=== PATIENT | female | born 1985 | race Caucasian/White ===

== ENCOUNTER 2016-04-11 16:13 | Outpatient (CLI) | payer MEDICAID ==
[2016-04-11 16:56] LABS: APPEARANCE,URINE SLIGHTLY-CLOUDY; BILIRUBIN,URINE NEGATIVE (NEGATIVE); GLUCOSE, URINE NEGATIVE (NEGATIVE); KETONES,URINE NEGATIVE (NEGATIVE); LEUKOCYTE ESTERASE,URINE NEGATIVE (NEGATIVE); NITRITE,URINE NEGATIVE (NEGATIVE); PROTEIN,URINE NEGATIVE (NEGATIVE); URINE SPECIFIC GRAVITY 1.012; UROBILINOGEN,URINE NEGATIVE mg/dL (<2.0)
[2016-04-11 17:10] LABS: URINE BARBITURATES SCREEN NEGATIVE; URINE METHADONE SCREEN NEGATIVE; URINE PHENCYCLIDINE SCREEN NEGATIVE
[2016-04-11 17:20] LABS: ABSOLUTE EOSINOPHILS # (AUTO) 0.1 10^3/uL (0.0-0.6); ABSOLUTE LYMPHOCYTES (AUTO) 0.8 10^3/uL (0.5-4.7); ABSOLUTE MONOCYTES (AUTO) 0.8 10^3/uL (0.1-1.4); ABSOLUTE NEUT (AUTO) 8.1 10^3/uL (1.7-8.2); BASOPHILS % (AUTO) 0.2 % (0-2); EOSINOPHILS % (AUTO) 0.6 % (0-6); HEMATOCRIT 37.8 % (36.0-47.0); HEMOGLOBIN 12.2 g/dL (12.0-15.5); HGB HCT DIFFERENCE -1.2; LYMPHOCYTES % (AUTO) 8.1 % (13-45); MEAN CORPUSCULAR HEMOGLOBIN 30.4 pg (27.0-33.4); MEAN CORPUSCULAR HGB CONC 32.2 g/dL (32.0-36.0); MEAN CORPUSCULAR VOLUME 95 fl (80-97); MONOCYTES % (AUTO) 8.6 % (3-13); RED BLOOD COUNT 4.01 10^6/uL (3.72-5.28); RED CELL DISTRIBUTION WIDTH 13.4 % (11.5-14.0); SEGMENTED NEUTROPHILS % (AUTO) 82.5 % (42-78); WHITE BLOOD COUNT 9.8 10^3/uL (4.0-10.5)
--- NOTE | 2016-04-12 04:48 | L&D Flow Sheet ---
LD Flowsheet Datetime Report Generated by CPN: 04/12/2016 04:45 Datetime: 04/11/2016 19:28 Teaching Comments: labor care notes provided and explained. all pt and signifcant other questions answered (Kathleen Celio, RN) Datetime: 04/11/2016 19:26 Comments: FHR 155; +FM auscultated and felt per pt (Kathleen Celio, RN) Comments: FHT 155 (Klaus Freddy, RN) Datetime: 04/11/2016 19:17 Respirations: 20 (Klaus Hayes, RN) Comments: +FM (Klaus Hayes RN) Pain Scale: 1 (Klaus Hayes, RN) Pain Presence: Intermittent (Klaus Hayes, RN) Pain Type: Cramping (Klaus Hayes, RN) Pain Location: Abdomen (Klaus Hayes, RN) Pain Relief Measures: Comfort Measures (Klaus Hayes, RN) Pain Coping: Talking Through Contractions; Declines Medication or Epidural (Klaus Hayes, RN) Level of Consciousness: Fully Conscious (Klaus Mckenzieeet, RN) Headache: Denies (Klaus Mckenzieeet, RN) Breath Sounds, Left: Clear and Equal (Klaus Mckenzieeet, RN) Breath Sounds, Right: Clear and Equal (Klaus Freddy, RN) Nausea/Vomiting: Denies (Klaus Mckenzieeet, RN) RUQ Epigastric Pain: Denies (Klaus Freddy, RN) Datetime: 04/11/2016 19:15 NBP Sys/Jessica/Mean (mmHg): 126 (QS system process) : 70 (QS system process) : 92 (QS system process) Pulse: 108 (QS system process) Datetime: 04/11/2016 19:12 Communication Comments: Dr Guzman notified of temperature, US report of 3.4cm cervical length and closed; Orders to discharge patient home, pt may take OTC cold medicine for cough and tylenol for elevated temperature. (Klaus Hayes RN) Datetime: 04/11/2016 19:11 Temperature (F): 100.0 (Klaus Hayes RN) Temperature (C): 37.8 (QS system process) Communication Comments: Dr Guzman assess pt (Klaus Hayes RN) Datetime: 04/11/2016 18:45 NBP Sys/Jessica/Mean (mmHg): 126 (QS system process) : 72 (QS system process) : 93 (QS system process) Pulse: 104 (QS system process) Datetime: 04/11/2016 17:44 Monitor Mode: External; Palpation (Kalus Hayes RN) Frequency (min): none (Klaus Hayes RN) Resting Tone (Palpate): Relaxed (Klaus Hayes RN) Comments: [id number] +FM; Pt removed from monitors to await transport to US. (Klaus Hayes RN) Communication: RN at Bedside; RN Reviewed Strip (Klaus Hayes RN) Datetime: 04/11/2016 17:33 NBP Sys/Jessica/Mean (mmHg): 122 (QS system process) : 70 (QS system process) : 90 (QS system process) Pulse: 97 (QS system process) Datetime: 04/11/2016 17:30 Monitor Mode: External; Palpation (Klaus Hayes RN) Frequency (min): none (Klaus Hayes RN) Resting Tone (Palpate): Relaxed (Klaus Hayes RN) Contraction Comments: pt c/o cramping (Klaus Hayes RN) Pain Scale: 1 (Klaus Hayes RN) Pain Presence: Intermittent (Klaus Hayes RN) Pain Type: Cramping (Klaus Hayes RN) Pain Location: Abdomen (Klaus Hayes RN) Pain Relief Measures: Comfort Measures (Klaus Hayes RN) Pain Coping: Talking Through Contractions; Declines Medication or Epidural (Klaus Hayes RN) Comfort Measures: Breathing/Relaxation; Family Support (Klaus Hayes RN) Datetime: 04/11/2016 17:28 Communication Comments: Dr Guzman reviewed labwork, vs, efm. Notified pt states cramping is unchanged, 1/5 pain now. Orders for US for cervical length (Klaus Hayes RN) Datetime: 04/11/2016 17:03 NBP Sys/Jessica/Mean (mmHg): 118 (QS system process) : 73 (QS system process) : 91 (QS system process) Pulse: 105 (QS system process) Datetime: 04/11/2016 17:00 Monitor Mode: External; Palpation (Klaus Hayes RN) Frequency (min): none (Klaus Hayes RN) Resting Tone (Palpate): Relaxed (Klaus Hayes RN) Contraction Comments: Pt denies cramping/contractions (Klaus Hayes RN) Comments: +FM (Klaus Hayes RN) Pain Presence: None/Denies (Klaus Hayes RN) IV/Blood Work: Labs Drawn (Klaus Hayes RN) Communication: RN at Bedside; RN Reviewed Strip (Klaus Hayes RN)
--- NOTE | 2016-04-12 04:48 | L&D Current Admission ---
Current Admit Datetime Report Generated by CPN: 04/12/2016 04:45 ADMISSION INFORMATION Chief Complaint: Uterine Cramping (Annotations: Pt states cramping is decreased now, has taken tylenol earlier, and pain was relieved. ) (04/11/2016 16:30:Klaus Hayes RN)
--- NOTE | 2016-04-12 04:48 | L&D General Admission ---
General Admit Datetime Report Generated by CPN: 04/12/2016 04:45 INFORMATION Patient Age: 30 (04/11/2016 16:14:QS system process) EDC: 08/20/2016 00:00 (04/11/2016 16:15:Tabatha Araujo RN) : 3 (04/11/2016 16:15:Klaus Hayes RN) Para: 0 (04/11/2016 16:15:Klaus Hayes RN) Spontaneous Abortions: 1 (04/11/2016 16:15:Klaus Hayes RN) Induced Abortions: 1 (04/11/2016 16:15:Klaus Hayes RN) [place] (04/11/2016 16:15:Klaus Hayes RN) CARE Primary Sharepoint Application Developer: [facility] (04/11/2016 16:15:Klaus Hayes RN) Sharepoint Application Developer Other: [facility] (04/11/2016 16:15:Klaus Hayes RN) Height (in): 66 (04/11/2016 16:28:QS system process) ALLERGIES Medication Allergy: No (04/11/2016 16:15:Klaus Hayes RN) Medication Allergies: No Known Allergies (04/11/2016) (04/11/2016 16:27:QS system process) Medication Allergies: No Known Allergies (07/07/2015) (04/11/2016 16:14:QS system process) Latex Allergy: No Latex Allergies (04/11/2016 16:15:Klaus Hayes RN) COMMUNICATION Primary Language: Polish (04/11/2016 16:15:Klaus Hayes RN) Medical Tx Preferred Language: Polish (04/11/2016 16:15:Klaus Hayes RN) Communication Barrier(s): None (04/11/2016 16:15:Klaus Hayes RN) DEMOGRAPHICS Address: [address] [place] [address] [place] [address] (04/11/2016 16:14:QS system process) Zipcode: [phone] (04/11/2016 16:14:QS system process) Home (04/11/2016 16:14:QS system process) SSN: [id number] (04/11/2016 16:14:QS system process) Next of Kin Name: SAMMY LINDO (04/11/2016 16:14:QS system process) Next of Kin (04/11/2016 16:14:QS system process) Next of Kin Relationship: SPO (04/11/2016 16:14:QS system process) Date of : 1985 (04/11/2016 16:14:QS system process) Marital Status: (04/11/2016 16:14:QS system process) Sex: Female (04/11/2016 16:14:QS system process) Race: (04/11/2016 16:14:QS system process) Ethnicity: Non- or (04/11/2016 16:14:QS system process) Zoroastrianism: None (04/11/2016 16:14:QS system process) DRUG AND ALCOHOL USE Alcohol: No (04/11/2016 16:15:Klaus Hayes, CHECO) Cigarettes: Never Smoker. [id number] (04/11/2016 16:15:Klaus Hayes RN) Marijuana: No (04/11/2016 16:15:Klaus Hayes RN) Cocaine: No (04/11/2016 16:15:Klaus Hayes RN) Other Illicit Drugs: No (04/11/2016 16:15:Klaus Hayes RN) VACCINE HISTORY Influenza Vaccine: No (04/11/2016 16:15:Klaus Hayes RN) Pneumococcal Vaccine: No (04/11/2016 16:15:Klaus Hayes RN) Tetanus Vaccine: Yes (04/11/2016 16:15:Klaus Hayes RN) Tdap Vaccine: No (04/11/2016 16:15:Klaus Hayes RN) Hepatitis B Vaccine: Yes (04/11/2016 16:15:Klaus Hayes RN) Circumcision: No (04/11/2016 16:15:Klaus Hayes RN) Tubal Ligation: No (04/11/2016 16:15:Klaus Hayes RN) Tubal Authorization Signed: N/A (04/11/2016 16:15:Klaus Hayes RN) Consent: N/A (04/11/2016 16:15:Klaus Hayes RN) Consent Signed: N/A (04/11/2016 16:15:Klaus Hayes RN) Pain Management Plans: Natural (04/11/2016 16:15:Klaus Hayes RN) Support Person: Sammy Lindo (04/11/2016 16:15:Klaus Hayes RN) Support Person Relationship: (04/11/2016 16:15:Klaus Hayes RN) Cultural/Spritual Practice: No (04/11/2016 16:15:Klaus Hayes RN) Spir/Cult Dietary Needs: No (04/11/2016 16:15:Klaus Hayes RN) LIVING SITUATION/DISCHARGE PLAN Living Arrangements: House (04/11/2016 16:15:Klaus Hayes RN) Adequate Access to:: Electric; Heat; Refrigeration; Plumbing/Running water; Phone; Transportation (04/11/2016 16:15:Klaus Hayes RN) WIC Program: Yes (04/11/2016 16:15:Klaus Hayes RN) Discharge Title Department Manager Person: Sammy Lindo (04/11/2016 16:15:Klaus Hayes RN) Person to Help after Discharge: Sammy Lindo (04/11/2016 16:15:Klaus Hayes RN) Currently Using Commun Resources: Yes (04/11/2016 16:15:Klaus Hayes RN) Specify Current Resource Used: Medicaid (04/11/2016 16:15:Klaus Hayes RN) Outside Agency/Battery Loader: No (04/11/2016 16:15:Klaus Hayes RN) Car Seat for Discharge: Yes (04/11/2016 16:15:Klaus Hayes RN) Adoption Requested: No (04/11/2016 16:15:Klasu Hayes RN) Pt Contact w/infant Post : N/A (04/11/2016 16:15:Klaus Hayes RN) LABS Blood Type: A Positive (04/11/2016 16:15:Klaus Hayes RN) Antibody Screen: Negative (04/11/2016 16:15:Klaus Hayes RN) Hemoglobin: 12.2 (04/11/2016 17:04:QS system process) Hematocrit: 37.8 (04/11/2016 17:04:QS system process) MCV: 95 (04/11/2016 17:04:QS system process) RPR/VDRL: Nonreactive (04/11/2016 16:15:Klaus Hayes RN) HIV Exposure Test: Negative (04/11/2016 16:15:Klaus Hayes RN) Hepatitis B: Negative (04/11/2016 16:15:Klaus Hayes RN) Rubella: Negative (04/11/2016 16:15:Klaus Hayes RN) Varicella: Positive (04/11/2016 16:15:Klaus Hayes RN) Varicella Titer: 1571 (04/11/2016 16:15:Klaus Hayes RN)
--- NOTE | 2016-04-12 04:48 | L&D Admission Assessment ---
LD ADM ASMT Datetime Report Generated by CPN: 04/12/2016 04:45 PATIENT ASSESSMENT Assessment Type: Admission Assessment (04/11/2016 16:30:Klaus Freddy, RN) WEIGHT Weight (lb): 211 (04/11/2016 16:28:QS system process) Weight (kg): 95.9 (04/11/2016 16:28:QS system process) PAIN Pain Scale: 1 (04/11/2016 19:17:Klaus Freddy, RN) Pain Scale: 1 (04/11/2016 17:30:Klaus Freddy, RN) Pain Scale: 0 (04/11/2016 16:30:Klaus Freddy, RN) Pain Presence: Intermittent (04/11/2016 19:17:Klaus Freddy, RN) Pain Presence: Intermittent (04/11/2016 17:30:Klaus Freddy, RN) Pain Presence: None/Denies (04/11/2016 17:00:Klaus Freddy, RN) Pain Presence: None/Denies (04/11/2016 16:30:Klaus Freddy, RN) Pain Type: Cramping (04/11/2016 19:17:Klaus Freddy, RN) Pain Type: Cramping (04/11/2016 17:30:Klaus Freddy, RN) Pain Location: Abdomen (04/11/2016 19:17:Klaus Freddy, RN) Pain Location: Abdomen (04/11/2016 17:30:Klaus Freddy, RN) CONTRACTIONS Frequency (min): none (04/11/2016 17:44:Klaus Mezat, RN) Frequency (min): none (04/11/2016 17:30:Klaus Mezat, RN) Frequency (min): none (04/11/2016 17:00:Klaus Mezat, RN) Resting Tone [place]: Relaxed (04/11/2016 17:44:Klaus Hayes, RN) Resting Tone [place]: Relaxed (04/11/2016 17:30:Klaus Mezat, RN) Resting Tone [place]: Relaxed (04/11/2016 17:00:Klaus Mezat, RN) Contraction Comments: pt c/o cramping (04/11/2016 17:30:Klaus Hayes RN) Contraction Comments: Pt denies cramping/contractions (04/11/2016 17:00:Klaus Hayes, RN) NEURO Level of Consciousness: Fully Conscious (04/11/2016 19:17:Klaus Hayes RN) Level of Consciousness: Fully Conscious (04/11/2016 16:30:Klaus Hayes RN) DTR's/Clonus: DTRs 2+; No Clonus (04/11/2016 16:30:Klaus Hayes RN) Headache: Denies (04/11/2016 19:17:Klaus Hayes RN) Headache: Denies (04/11/2016 16:30:Klaus Hayes RN) Dizziness: No (04/11/2016 16:30:Klaus Hayes RN) Blurred Vision: No (04/11/2016 16:30:Klaus Hayes RN) Extremity Numbness/Tingling : None (04/11/2016 16:30:Klaus Hayes RN) Extremity Movement: Full Range of Motion (04/11/2016 16:30:Klaus Hayes RN) CARDIOVASCULAR Heart Rhythm: Regular (04/11/2016 16:30:Klaus Hayes RN) Nailbeds: [place] (04/11/2016 16:30:Klaus Hayes RN) Capillary Refill: Less than 3 Seconds (04/11/2016 16:30:Klaus Hayes RN) Lower Extremities Edema: None (04/11/2016 16:30:Klaus Hayes RN) Lower Extremities Edema Degree: None (04/11/2016 16:30:Klaus Hayes RN) Upper Extremities Edema: None (04/11/2016 16:30:Klaus Hayes RN) Upper Extremities Edema Degree: None (04/11/2016 16:30:Klaus Hayes RN) Facial Edema: None (04/11/2016 16:30:Klaus Hayes RN) Kasandra's Sign Left Leg: Negative (04/11/2016 16:30:Klaus Hayes RN) Kasandra's Sign Right Leg: Negative (04/11/2016 16:30:Klaus Hayes RN) DVT RISK ASSESSMENT DVT Risk Age: Age less than 41 years (04/11/2016 16:30:Klaus Hayes RN) DVT Risk BMI: BMI 31 to 40 (04/11/2016 16:30:Klaus Hayes RN) DVT Risk Surgery: None Applicable (04/11/2016 16:30:Klaus Hayes RN) DVT Risk Other: Women Only- or (<1 month) (04/11/2016 16:30:Klaus Hayes RN) DVT Risk Total: 2 (04/11/2016 16:30:QS system process) DVT Risk Text: Moderate Risk (10-20%) - Consider stockings, compresssion device, pharmacological therapy per hospital policy (04/11/2016 16:30:QS system process) RESPIRATORY Respiratory Effort: Unlabored; Regular Rhythm; Equal Expansion (04/11/2016 16:30:Klaus Hayes RN) Breath Sounds, Left: Clear and Equal (04/11/2016 19:17:Klaus Hayes RN) Breath Sounds, Left: Clear and Equal (04/11/2016 16:30:Klaus Hayes RN) Breath Sounds, Right: Clear and Equal (04/11/2016 19:17:Klaus Freddy, RN) Breath Sounds, Right: Clear and Equal (04/11/2016 16:30:Klaus Freddy, RN) Cough Productivity: None (04/11/2016 16:30:Klaus Freddy, RN) GASTROINTESTINAL Nausea/Vomiting: Denies (04/11/2016 19:17:Klaus Freddy, RN) Nausea/Vomiting: Denies (04/11/2016 16:30:Klaus Freddy, RN) Bowel Sounds: Normoactive (04/11/2016 16:30:Klaus Freddy, RN) RUQ Epigastric Pain: Denies (04/11/2016 19:17:Klaus Freddy, RN) RUQ Epigastric Pain: Denies (04/11/2016 16:30:Klaus Freddy, RN) Bowel Patterns: Soft, Formed Stool (04/11/2016 16:30:Klaus Freddy, RN) Hemorrhoids: None (04/11/2016 16:30:Klaus Freddy, RN) Diet Type: Regular diet (04/11/2016 16:30:Klaus Freddy, RN) GENITOURINARY Bladder: Nondistended (04/11/2016 16:30:Klaus Freddy, RN) Frequency of Urination: No (04/11/2016 16:30:Klaus Freddy, RN) Urination Burning: No (04/11/2016 16:30:Klaus Freddy, RN) CVA Tenderness: No (04/11/2016 16:30:Klaus Freddy, RN) Vaginal Bleeding: None (04/11/2016 16:30:Klaus Freddy, RN) Vaginal Discharge Amount: None (04/11/2016 16:30:Klaus Freddy, RN) Vaginal Discharge Color: N/A (04/11/2016 16:30:Klaus Freddy, RN) Vaginal Discharge Odor: Non-Odorous (04/11/2016 16:30:Klaus Freddy, RN) Vaginal Discharge Character: None (04/11/2016 16:30:Klaus Freddy, RN) INTEGUMENTARY Skin Color: Normal for Race (04/11/2016 16:30:Klaus Freddy, RN) Skin Temperature: Warm (04/11/2016 16:30:Klaus Freddy, RN) Skin Moisture: Dry (04/11/2016 16:30:Klaus Freddy, RN) [place] SKIN ASSESSMENT [place] Scale Sensory Perception: No Impairment- Responds to verbal commands. Has no sensory deficit which would limit ability to feel or voice pain or discomfort (04/11/2016 16:30:Klaus Hayes RN) [place] Scale Moisture: Rarely Moist- Skin is usually dry. Linen only requires changing at routine intervals (04/11/2016 16:30:Klaus Hayes RN) [place] Scale Activity: Walks Frequently- Walks outside the room at least twice a day and inside room at least every 2 hours during the day. (04/11/2016 16:30:Klaus Hayes RN) [place] Scale Mobility: No Limitations- Makes major and frequent changes in position without assistance (04/11/2016 16:30:Klaus Hayes RN) [place] Scale Nutrition: Excellent- Eats most of every meal. Never refuses a meal. Usually eats a total of 4 or more servings of meat and dairy products. Occasionally eats between meals. Does not require supplementation (04/11/2016 16:30:Klaus Hayes RN) [place] Scale Friction and Shear: No Apparent Problem- Moves in bed and in chair independently and has sufficient muscle strength to lift up completely during move. Maintains good position in bed or chair at all times (04/11/2016 16:30:Klaus Hayes RN) [place] Scale Total: 23 (04/11/2016 16:30:QS system process) [place] Scale Risk: No Risk of Pressure Ulcer Noted at this Time (04/11/2016 16:30:QS system process) SUPPORT Family Support: Significant Other supportive, at bedside frequently (04/11/2016 16:30:Klaus Freddy, RN) Emotional State: Calm/Relaxed (04/11/2016 16:30:Klaus Freddy, RN) SAFETY Call [place] Within Reach: Yes (04/11/2016 16:30:Klaus Freddy, RN) Side Rails Up: Yes (04/11/2016 16:30:Klaus Freddy, RN) Bed Wheels Locked: Yes (04/11/2016 16:30:Klaus Freddy, RN) Arm Bands Present: Yes (04/11/2016 16:30:Klaus Freddy, RN) Isolation: [place] (04/11/2016 16:30:Klaus Freddy, RN) FALL SCREEN Fall Risk History of Falling: (0) No (04/11/2016 16:30:Klaus Hayes RN) Fall Risk Secondary Diagnosis: (0) No (04/11/2016 16:30:Klaus Hayes RN) Fall Risk Ambulatory Aid: (0) None/Bedrest/Wheelchair/Nurse Assist (04/11/2016 16:30:Klaus Hayes RN) Fall Risk IV Therapy: (0) No (04/11/2016 16:30:Klaus Hayes RN) Fall Risk Gait: (0) Normal/Bedrest/Immobile (04/11/2016 16:30:Klaus Hayes RN) Fall Risk Mental Status: (0) Oriented to Own Ability (04/11/2016 16:30:Klaus Hayes RN) Fall Risk Score: 0 (04/11/2016 16:30:QS system process) Fall Risk Score Definition: No Risk: No action required (04/11/2016 16:30:QS system process) RECENT TRAVEL/INFECTIOUS DISEASE Recent Exp Communicable Disease: No (04/11/2016 16:30:Klaus Hayes RN) Cough or Fever: Yes (04/11/2016 16:30:Klaus Hayes RN) Foreign Travel Past 10 Days: No (04/11/2016 16:30:Klaus Hayes RN) Open Wounds or Sores: No (04/11/2016 16:30:Klaus Hayes RN) Prior Antibiotic Resistance Tx: No (04/11/2016 16:30:Klaus Hayes RN) Cultures Obtained: Not Applicable (04/11/2016 16:30:Klaus Hayes RN) Isolation Initiated: No (04/11/2016 16:30:Klaus Hayes RN) Pt/Family Education: Handwashing Hygiene (04/11/2016 16:30:Klaus Hayes RN) ADDITIONAL COMMENTS Assessment Flag: Admission Assessment (04/11/2016 16:30:QS system process)
--- NOTE | 2016-04-12 04:49 | L&D Discharge Summary ---
OB Discharge Summary Datetime Report Generated by CPN: 04/12/2016 04:45 DISCHARGE DIAGNOSIS Diagnosis/Symptoms: False Labor Gestation: 21.2 Parity: 0 DIET/ACTIVITY/RESTRICTIONS Diet: Regular Activity Restrictions: No Sexual Activity; Nothing in Vagina - [place], Tampons, [place] TEACHING/INSTRUCTIONS/REFERRALS Instructions Given To: PT Instructions Understood: Patient Verbalized Understanding; Support Person Verbalized Understanding Referrals: None Educational Materials- Other: Labor DISCHARGE INFORMATION Discharged AMA: No Discharge Date/Time: 04/11/2016 19:22 Discharged To: Home Discharge Provider Name: YEE Accompanied By: Discharge Method: Ambulatory Condition: Stable FOLLOW UP INFORMATION Follow Up With: [facility] Follow Up On: As Scheduled Follow Up Phone Number: [facility] - Comments: Pt discharged ambulatory in no distress, agrees with discharge plan, states she will take tylenol at home for elevated temperature. 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 Pt verbalizes understanding of s/s to report, when to return to hospital for evaluation, to keep scheduled appointments. No complaints. GENERAL INSTR-CALL PROVIDER IF: Contractions: Contractions or cramps become more frequent than 8 in one hour or 4 in 20 minutes; Regular painful contractions every 5 minutes or less for one hour. Time your contractions from the beginning of one to the beginning of the next Pressure: Pressure in your vagina or lower abdomen that may feel like the baby is pushing down Period Like Cramps: Period-like cramps or low dull backache that may come and go Cramps/Diarrhea: Abdominal cramps that may be accompanied by diarrhea Gush of Fluid/Blood: Gush of fluid or blood from your vagina (it is normal to have spotting after vaginal exam or intercourse) Vaginal Discharge: Change in the type or amount of vaginal discharge Decreased Movement: Your baby is not moving as much as usual- 4 movements in 1 hour after drinking and resting on side Temperature: Temperature greater than 100.0(F) orally
--- NOTE | 2016-04-12 04:49 | Antepartum Discharge Summary ---
Antepartum DC Datetime Report Generated by CPN: 04/12/2016 04:45 DIET/ACTIVITY/RESTRICTIONS Diet: Regular (04/11/2016 19:21:Klaus Freddy, RN) Activity Restrictions: No Sexual Activity; Nothing in Vagina - [place], Tampons, Douche (04/11/2016 19:21:Klaus Freddy, RN) TEACHING/INSTRUCTIONS/REFERRALS Instructions Given To: PT (04/11/2016 19:21:Klaus Freddy, RN) Instructions Understood: Patient Verbalized Understanding; Support Person Verbalized Understanding (04/11/2016 19:21:Klaus Hayes RN) Referrals: None (04/11/2016 19:21:Klaus Hayes RN) Educational Materials- Other: Labor (04/11/2016 19:21:Klaus Hayes RN) DISCHARGE INFORMATION Discharged AMA: No (04/11/2016 19:21:Klaus Hayes RN) Discharge Date/Time: 04/11/2016 19:22 (04/11/2016 19:21:Klaus Hayes RN) Discharged To: Home (04/11/2016 19:21:Klaus Hayes RN) Discharge Provider Name: YEE (04/11/2016 19:21:Klaus Hayes RN) Accompanied By: (04/11/2016 19:21:Klaus Hayes RN) Discharge Method: Ambulatory (04/11/2016 19:21:Klaus Hayes RN) Condition: Stable (04/11/2016 19:21:Klaus Hayes RN) FOLLOW UP INFORMATION Follow Up With: [facility] (04/11/2016 19:21:Klaus Hayes RN) Follow Up On: As Scheduled (04/11/2016 19:21:Klaus Hayes RN) Follow Up Phone Number: [facility] - (04/11/2016 19:21:Klaus Hayes RN) Comments: Pt discharged ambulatory in no distress, agrees with discharge plan, states she will take tylenol at home for elevated temperature. dispensing and measuring optician agrees with discharge. Pt verbalizes understanding of s/s to report, when to return to hospital for evaluation, to keep scheduled appointments. No complaints. (04/11/2016 19:21:Klaus Hayes RN) GENERAL INSTR-CALL PROVIDER IF: Contractions: Contractions or cramps become more frequent than 8 in one hour or 4 in 20 minutes; Regular painful contractions every 5 minutes or less for one hour. Time your contractions from the beginning of one to the beginning of the next (04/11/2016 19:21:Klaus Hayes RN) Pressure: Pressure in your vagina or lower abdomen that may feel like the baby is pushing down (04/11/2016 19:21:Klaus Hayes RN) Period Like Cramps: Period-like cramps or low dull backache that may come and go (04/11/2016 19:21:Klaus Hayes RN) Cramps/Diarrhea: Abdominal cramps that may be accompanied by diarrhea (04/11/2016 19:21:Klaus Hayes RN) Gush of Fluid/Blood: Gush of fluid or blood from your vagina (it is normal to have spotting after vaginal exam or intercourse) (04/11/2016 19:21:Klaus Hayes RN) Vaginal Discharge: Change in the type or amount of vaginal discharge (04/11/2016 19:21:Klaus Hayes RN) Decreased Movement: Your baby is not moving as much as usual- 4 movements in 1 hour after drinking and resting on side (04/11/2016 19:21:Klaus Hayes RN) Temperature: Temperature greater than 100.0(F) orally (04/11/2016 19:21:Klaus Hayes RN) Hypertension Signs/Symptoms: Severe headache which is not relieved 30 minutes after taking Tylenol(Acetaminophen); Blurry vision or spots before your eyes; Severe heartburn or pain on the upper right side of your abdomen that is not relieved by an antacid; Increased swelling in your face, hands or feet (04/11/2016 19:21:Klaus Hayes RN) Urinary Output: Decreased urinary output or dark colored urine (04/11/2016 19:21:Klaus Hayes RN) ADDITIONAL INSTRUCTIONS N/V [place]/Crackers: Keep dry toast/crackers with you to munc on (04/11/2016 19:21:Klaus Hayes RN) N/V Frequent Meals: Eat small frequent meals (04/11/2016 19:21:Klaus Hayes RN) N/V Empty Stomach: Try to keep something in your stomach (don't let your stomach get empty) (04/11/2016 19:21:Klaus Hayes RN) N/V Time Getting Up: Take your time getting up (04/11/2016 19:21:Klaus Hayes RN) N/V Avoid Smells: Avoid smells that make you feel sick (04/11/2016 19:21:Klaus Hayes RN) Travel Seatbelts: Wear seatbelts or safety/lap belts (04/11/2016 19:21:Klaus Hayes RN) Travel Walk Frequently: Walk frequently, every 1-2 hours (04/11/2016 19:21:Klaus Hayes RN) Travel Comfort Clothes: Wear clothing that does not constrict and comfortable shoes (04/11/2016 19:21:Klaus Hayes RN) Travel Light Snack: Keep a light snack (e.g. dry crackers) with you at all times to prevent nausea (04/11/2016 19:21:Klaus Hayes RN) Travel Hydration: Drink plenty of water, low sodium and noncaffeinated drinks (04/11/2016 19:21:Klaus Hayes RN) Travel Medications: DO NOT take any medication that is not approved by your physician first (04/11/2016 19:21:Klasu Hayes RN) Travel PN Records: Always keep a copy of your medical record with you just in case (04/11/2016 19:21:Klaus Hayes RN) Edema Avoid Standing: Avoid standing for long periods, keep legs up when you can (04/11/2016 19:21:Klaus Hayes RN) Edema Rest on Side: When resting, lie on your side (left is best) (04/11/2016 19:21:Klaus Hayes RN) Edema Limit Sodium: Limit the amount of salty foods you eat (04/11/2016 19:21:Klaus Hayes RN) Edema Support Hose: Try to wear support hose as much as possible (04/11/2016 19:21:Klaus Hayes RN) Exercise Overheating: Avoid situations that would cause you to become overheated (04/11/2016 19:21:Klaus Hayes RN) Exercise Weather: Exercise outdoors only if the weather is reasonable and not too hot (04/11/2016 19:21:Klaus Hayes RN) Exercise Exertion: Do not over exert yourself when you exercise (04/11/2016 19:21:Klaus Hayes RN) Exercise Hydration: Drink plenty of fluids, especially water (04/11/2016 19:21:Klaus Hayes RN) Exercise Support: Wear good support hose, bra and shoes when exercising (04/11/2016 19:21:Klaus Hayes RN) Varicose Veins Instructions: Do not stand for long periods of time (04/11/2016 19:21:Klaus Hayes RN) Varicose Veins Elevate Sit: Try to keep your legs elevated when you are sitting (04/11/2016 19:21:Klaus Hayes RN) Varicose Veins Elevate Lying: When lying down, keep your legs elevated (04/11/2016 19:21:Klaus Hayes RN) Varicise Veins Non Binding: When wearing stockings or socks, make sure they are not too tight and bind your legs (04/11/2016 19:21:Klaus Hayes RN) Varicose Veins Support: Wear support hose/stockings at all times (04/11/2016 19:21:Klaus Hayes RN) Varicose Veins Periodic Move: If you have a job where you sit a lot, get up periodically and walk around (04/11/2016 19:21:Klaus Hayes RN)
== END 2016-04-11 19:29 | disposition home or self-care (01) ==
LOC: LC 16:13
PROVIDERS: ATTEND Obstetrics & Gynecology
PROC: 4A1HXCZ Monitoring of Products of Conception, Cardiac Rate, External Approach (ICD-10-PCS; principal; 2016-04-11)
DX: O47.02 False labor before 37 completed weeks of gestation, second trimester (principal); Z3A.21 21 weeks gestation of pregnancy
CPT/HCPCS: 36415; 76815; 80307; 81001; 85025

== ENCOUNTER → 2016-04-17 | Outpatient (CLI) | payer MEDICAID | LOC: RAD 11:07 | PROVIDERS: ATTEND Advanced Practice Midwife | DX: R07.9 Chest pain, unspecified (principal); J06.9 Acute upper respiratory infection, unspecified | CPT/HCPCS: 71020 ==

== ENCOUNTER 2016-06-09 11:13 | Emergency (ER) | payer MEDICAID ==
--- NOTE | 2016-06-09 12:19 | ER Document Report ---
ED Medical Screen (RME) - General Stated Complaint: CHEST PAIN Notes: Patient states she was sent over by the OB for evaluation of chest pain, up and down heart rate for about the last week and a half. Patient is 30 weeks . Patient states she woke up this morning with pain to her right shoulder which radiates down into right chest. Denies cardiac history. No increased peripheral swelling per patient. Patient states she is just getting over a cold. I have greeted and performed a rapid initial assessment of this patient. A comprehensive ED assessment and evaluation of the patient, analysis of test results and completion of the medical decision making process will be conducted by additional ED providers. TRAVEL OUTSIDE OF THE [place] IN LAST 30 DAYS: No - Related Data Allergies/Adverse Reactions: No Known Allergies Allergy (Verified 06/09/16 12:16) Past Medical History Psychiatric Medical History: Reports: Hx Depression Past Surgical History: Reports: Hx Gynecologic Surgery - Elective - Immunizations Hx Diphtheria, Pertussis, Tetanus Vaccination: Yes Physical Exam - Vital signs Vitals: Temp Pulse Resp BP Pulse Ox 99.1 F 71 16 131/76 H 98 06/09/16 11:20 06/09/16 11:20 06/09/16 11:20 06/09/16 11:20 06/09/16 11:20 - Respiratory Respiratory status: No respiratory distress Breath sounds: Normal - Cardiovascular Rhythm: Regular Heart sounds: Normal auscultation Course - Vital Signs Vital signs: Temp Pulse Resp BP Pulse Ox 99.1 F 71 16 131/76 H 98 06/09/16 11:20 06/09/16 11:20 06/09/16 11:20 06/09/16 11:20 06/09/16 11:20
[2016-06-09 12:51] LABS: ABSOLUTE EOSINOPHILS # (AUTO) 0.1 10^3/uL (0.0-0.6); ABSOLUTE LYMPHOCYTES (AUTO) 1.3 10^3/uL (0.5-4.7); ABSOLUTE MONOCYTES (AUTO) 0.4 10^3/uL (0.1-1.4); ABSOLUTE NEUT (AUTO) 7.2 10^3/uL (1.7-8.2); BASOPHILS % (AUTO) 0.3 % (0-2); EOSINOPHILS % (AUTO) 0.7 % (0-6); HEMATOCRIT 39.8 % (36.0-47.0); HEMOGLOBIN 13.5 g/dL (12.0-15.5); HGB HCT DIFFERENCE 0.7; LYMPHOCYTES % (AUTO) 14.5 % (13-45); MEAN CORPUSCULAR HGB CONC 33.8 g/dL (32.0-36.0); MEAN CORPUSCULAR VOLUME 92 fl (80-97); MONOCYTES % (AUTO) 4.9 % (3-13); RED BLOOD COUNT 4.34 10^6/uL (3.72-5.28); RED CELL DISTRIBUTION WIDTH 14.2 % (11.5-14.0); SEGMENTED NEUTROPHILS % (AUTO) 79.6 % (42-78); WHITE BLOOD COUNT 9.1 10^3/uL (4.0-10.5)
[2016-06-09 12:59] LABS: PROTHROMBIN TIME 12.1 SEC (11.4-15.4)
[2016-06-09 13:12] LABS: ALANINE AMINOTRANSFERASE 32 U/L (9-52); ALBUMIN 3.9 g/dL (3.5-5.0); ALKALINE PHOSPHATASE 110 U/L (38-126); ANION GAP 12 (5-19); ASPARTATE AMINO TRANSFERASE 17 U/L (14-36); BILIRUBIN,TOTAL 0.5 mg/dL (0.2-1.3); BLOOD UREA NITROGEN 6 mg/dL (7-20); CALCIUM 10.1 mg/dL (8.4-10.2); CARBON DIOXIDE 24 mmol/L (22-30); CHLORIDE 103 mmol/L (98-107); CREATINE KINASE 31 U/L (30-135); CREATININE RESULT 0.42 mg/dL (0.52-1.25); GLUCOSE 76 mg/dL (75-110); POTASSIUM 4.2 mmol/L (3.6-5.0); SODIUM 138.5 mmol/L (137-145); TOTAL PROTEIN 7.3 g/dL (6.3-8.2)
[2016-06-09] MEDS ORDERED: ACETAMINOPHEN 325 MG TABLET PO ONE (13:23)
[2016-06-09 13:24] LABS: CREATINE KINASE MB 0.24 ng/mL (<4.55)
[2016-06-09 13:28] LABS: TROPONIN I < 0.012 ng/mL
--- NOTE | 2016-06-09 13:28 | ER Document Report ---
ED Cardiac - General Chief Complaint: Chest Pain Stated Complaint: CHEST PAIN Mode of Arrival: Ambulatory Information source: Patient Notes: Patient presents complaining of palpitations off and on for the past 10 days. Patient states she typically have 2 episodes a day of palpitations. Patient states that she woke up at 2:00 this morning need to go to the bathroom and noticed that she had some right shoulder pain that radiated to the right upper chest area and what she called a starburst pattern. Patient states she has had a recent upper respiratory symptoms for the past 6 days although states that the cough is much better today. Patient is currently 30 weeks . Patient was seen at her DOGMAN/WOMAN provider's office today for a routine checkup and had outpatient labs done including a TSH. Patient states that her DOGMAN/WOMAN doctor did make a referral to a publishing systems analyst for her. Patient presently denies any chest pain or shortness of breath. Patient denies any lower extremities swelling. TRAVEL OUTSIDE OF THE [place] IN LAST 30 DAYS: No - HPI Patient complains to provider of: Chest pain, Palpitations Was the onset of pain: Gradual Chest pain location: Other - Right upper shoulder area Quality of pain: None Chest pain radiation location: Right shoulder Severity now: None Severity at worst: Mild Pain level currently: 0 Chest pain precipitating factors: At Rest Cardiac risk factors: denies: Hypertension, Smoker Positive cardiac history: No Associated symptoms: Shortness of breath - When she has palpitations. 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 denies: Fever EENT: Nose congestion Cardiovascular: Chest pain - Right upper chest tenderness, Palpitations - Off and on 10 days 2 episodes each day Respiratory: Cough - That is now improving, Short of breath - Only when she has her palpitation symptoms Gastrointestinal: No symptoms reported. denies: Abdominal pain, Nausea, Vomiting Genitourinary: No symptoms reported. denies: Dysuria, Flank pain Female Genitourinary: Musculoskeletal: No symptoms reported. denies: Back pain Skin: No symptoms reported Hematologic/Lymphatic: No symptoms reported Neurological/Psychological: No symptoms reported Physical Exam - Vital signs Vitals: Temp Pulse Resp BP Pulse Ox 99.1 F 71 16 131/76 H 98 06/09/16 11:20 06/09/16 11:20 06/09/16 11:20 06/09/16 11:20 06/09/16 11:20 - General General appearance: Appears well, Alert In distress: None - HEENT Head: Normocephalic, Atraumatic Eyes: Normal Conjunctiva: Normal Ears: Normal External canal: Normal Tympanic membrane: Normal Nasal: Normal Mouth/Lips: Normal Mucous membranes: Normal Pharynx: Normal. No: Erythema, Exudate Neck: Normal, Supple. No: Lymphadenopathy - Respiratory Respiratory status: No respiratory distress Chest status: Nontender Breath sounds: Normal Chest palpation: Normal - Cardiovascular Rhythm: Regular Heart sounds: S1 appreciated, S2 appreciated Murmur: No - Abdominal Inspection: Gravid female Distension: No distension Bowel sounds: Normal Tenderness: Nontender - Back Back: Normal, Nontender. No: CVA tenderness, Vertebra tenderness - Extremities General upper extremity: Normal inspection, Normal ROM. No: Edema General lower extremity: Normal inspection, Normal ROM. No: Edema - Neurological Neuro grossly intact: Yes Cognition: Normal [place] Coma Scale Eye Opening: Spontaneous Lisandro Coma Scale Verbal: Oriented [place] Coma Scale Motor: Obeys Commands Lisandro Coma Scale Total: 15 - Psychological Associated symptoms: Normal affect, Normal mood - Skin Skin Temperature: Warm Skin Moisture: Dry Skin Color: Normal Course - Re-evaluation Re-evalutation: 06/09/16 14:[address] Silva regarding patient presentation and exam findings. Reviewed patient's EKG as well as diagnostic test results. Does not recommend repeating troponin. Does not recommend any additional testing at this time. 06/09/16 14:20 Patient reports that she ate something and then felt like her palpitations have returned. Repeat EKG ordered. 06/09/16 14:20 No TSH performed today as patient states that she had blood drawn for this test as an outpatient prior to her arrival in the ER. 06/09/16 14:47 Repeat EKG reviewed by Dr. Silva. No additional testing recommended. Recommends outpatient follow-up with cardiology. 06/09/16 15:03 Patient presently denies any complaints. Discussed worsening signs or symptoms that patient should return immediately for. Patient states that she does have a pending referral to cardiology that was placed by her nail setter. - Vital Signs Vital signs: Temp Pulse Resp BP Pulse Ox 98.5 F 77 20 124/69 99 06/09/16 15:28 06/09/16 15:28 06/09/16 15:28 06/09/16 15:28 06/09/16 15:28 - Laboratory Result Diagrams: 06/09/16 12:30 06/09/16 12:30 Laboratory results interpreted by me: 06/09/16 06/09/16 12:30 12:30 RDW 14.2 H Seg Neutrophils % 79.6 H BUN 6 L Creatinine 0.42 L 06/09/16 14:17 Labs- Entire Visit 06/09/16 06/09/16 06/09/16 12:30 12:30 12:30 WBC 9.1 RBC 4.34 Hgb 13.5 Hct 39.8 MCV 92 MCH 31.0 MCHC 33.8 RDW 14.2 H Plt Count 255 Seg Neutrophils % 79.6 H Lymphocytes % 14.5 Monocytes % 4.9 Eosinophils % 0.7 Basophils % 0.3 Absolute Neutrophils 7.2 Absolute Lymphocytes 1.3 Absolute Monocytes 0.4 Absolute Eosinophils 0.1 Absolute Basophils 0.0 PT 12.1 INR 0.87 Sodium 138.5 Potassium 4.2 Chloride 103 Carbon Dioxide 24 Anion Gap 12 BUN 6 L Creatinine 0.42 L Est GFR ( Amer) > 60 Est GFR (Non-Af Amer) > 60 Glucose 76 Calcium 10.1 Total Bilirubin 0.5 Direct Bilirubin 0.0 AST 17 ALT 32 Alkaline Phosphatase 110 Creatine Kinase 31 CK-MB (CK-2) Troponin I Total Protein 7.3 Albumin 3.9 06/09/16 12:30 WBC RBC Hgb Hct MCV MCH MCHC RDW Plt Count Seg Neutrophils % Lymphocytes % Monocytes % Eosinophils % Basophils % Absolute Neutrophils Absolute Lymphocytes Absolute Monocytes Absolute Eosinophils Absolute Basophils PT INR Sodium Potassium Chloride Carbon Dioxide Anion Gap BUN Creatinine Est GFR ( Amer) Est GFR (Non-Af Amer) Glucose Calcium Total Bilirubin Direct Bilirubin AST ALT Alkaline Phosphatase Creatine Kinase CK-MB (CK-2) 0.24 Troponin I < 0.012 Total Protein Albumin 06/09/16 14:45 Labs- Entire Visit 06/09/16 06/09/16 06/09/16 12:30 12:30 12:30 WBC 9.1 RBC 4.34 Hgb 13.5 Hct 39.8 MCV 92 MCH 31.0 MCHC 33.8 RDW 14.2 H Plt Count 255 Seg Neutrophils % 79.6 H Lymphocytes % 14.5 Monocytes % 4.9 Eosinophils % 0.7 Basophils % 0.3 Absolute Neutrophils 7.2 Absolute Lymphocytes 1.3 Absolute Monocytes 0.4 Absolute Eosinophils 0.1 Absolute Basophils 0.0 PT 12.1 INR 0.87 Sodium 138.5 Potassium 4.2 Chloride 103 Carbon Dioxide 24 Anion Gap 12 BUN 6 L Creatinine 0.42 L Est GFR ( Amer) > 60 Est GFR (Non-Af Amer) > 60 Glucose 76 Calcium 10.1 Total Bilirubin 0.5 Direct Bilirubin 0.0 AST 17 ALT 32 Alkaline Phosphatase 110 Creatine Kinase 31 CK-MB (CK-2) Troponin I Total Protein 7.3 Albumin 3.9 Lipase 06/09/16 06/09/16 12:30 12:30 WBC RBC Hgb Hct MCV MCH MCHC RDW Plt Count Seg Neutrophils % Lymphocytes % Monocytes % Eosinophils % Basophils % Absolute Neutrophils Absolute Lymphocytes Absolute Monocytes Absolute Eosinophils Absolute Basophils PT INR Sodium Potassium Chloride Carbon Dioxide Anion Gap BUN Creatinine Est GFR ( Amer) Est GFR (Non-Af Amer) Glucose Calcium Total Bilirubin Direct Bilirubin AST ALT Alkaline Phosphatase Creatine Kinase CK-MB (CK-2) 0.24 Troponin I < 0.012 Total Protein Albumin Lipase 32.2 06/09/16 15:02 Discharge - Discharge Clinical Impression: right upper chest pain, Palpitations Qualifiers: Weeks of gestation: 30 weeks Qualified Code(s): Z3A.30 - 30 weeks gestation of Condition: Stable Disposition: HOME, SELF-CARE Instructions: Chest Pain of Unclear Cause ([facility]), Acetaminophen, Palpitations ( Irregular or Rapid Heartrate) ([facility]) Additional Instructions: Return immediately for any new or worsening symptoms Followup with your primary care provider, call tomorrow to make a followup appointment Follow up with cardiology for further evaluation, call today for follow-up appointment Forms: Return to Work Referrals: ZHANG STAPLETON MD [Primary Care Provider] - 06/12/16 [facility] MCPHERSON MD [ACTIVE STAFF] - 06/12/16
[2016-06-09 14:28] LABS: ADD ON TESTING BLD IN LAB ACKNOWLEDGE
[2016-06-09 14:36] LABS: LIPASE 32.2 U/L (23-300)
[2016-06-09 15:29] VITALS: BP 124/69
--- NOTE | 2016-06-10 16:10 | EKG REPORT ---
SEVERITY:- BORDERLINE ECG - SINUS RHYTHM BORDERLINE T ABNORMALITIES, DIFFUSE LEADS : Confirmed by: Blanca Cano MD 10-Jun-2016 16:08:35
--- NOTE | 2016-06-10 16:10 | EKG REPORT ---
SEVERITY:- BORDERLINE ECG - SINUS RHYTHM BORDERLINE T ABNORMALITIES, DIFFUSE LEADS : Confirmed by: Blanca Cano MD 10-Jun-2016 16:08:30
== END 2016-06-09 15:28 | disposition home or self-care (01) ==
LOC: ER 11:13
DX: O26.893 Other specified pregnancy related conditions, third trimester (principal); R00.2 Palpitations; R06.02 Shortness of breath; R07.9 Chest pain, unspecified; R09.81 Nasal congestion; R05 Cough; O99.89 Other specified diseases and conditions complicating pregnancy, childbirth and the puerperium; M25.511 Pain in right shoulder; Z3A.30 30 weeks gestation of pregnancy
CPT/HCPCS: 93005; 99285; 36415; 82553; 82550; 83690; 85025; 85610; 80053; 84484; 93010; J3490

== ENCOUNTER 2016-07-13 09:00 | Outpatient (CLI) | payer MEDICAID ==
[2016-07-13 09:48] LABS: APPEARANCE,URINE CLEAR; BILIRUBIN,URINE NEGATIVE (NEGATIVE); GLUCOSE, URINE NEGATIVE (NEGATIVE); KETONES,URINE NEGATIVE (NEGATIVE); LEUKOCYTE ESTERASE,URINE NEGATIVE (NEGATIVE); NITRITE,URINE NEGATIVE (NEGATIVE); PROTEIN,URINE NEGATIVE (NEGATIVE); URINE SPECIFIC GRAVITY 1.004; UROBILINOGEN,URINE NEGATIVE mg/dL (<2.0)
[2016-07-13 10:00] LABS: URINE BARBITURATES SCREEN NEGATIVE; URINE METHADONE SCREEN NEGATIVE; URINE OPIATES LOW NEGATIVE; URINE PHENCYCLIDINE SCREEN NEGATIVE
--- NOTE | 2016-07-13 10:31 | Non Stress Test Report ---
Non Stress Test Datetime Report Generated by CPN: 07/13/2016 10:30 DEMOGRAPHIC EGA NST: 34.4 INDICATION Indication for Study: Ordered by Provider Indication for Study (NST) Other: LC/nst for maternal stress MONITORING Monitor Explained: Monitor Explained; Test Explained; Patient Verbalized Understanding Time on Monitor: 07/13/2016 09:24 Time off Monitor: 07/13/2016 10:27 NST Duration: 63 NST INTERVENTIONS NST Interventions: PO Hydration; Reposition Patient Physician Notified NST: Dr Santana BABY A: [id number] BABY A Movement : Present Contraction Frequency : 0 FHR Baseline : 140 Accelerations : 15X15 Decelerations : None Variability : Moderate 6-25bpm NST Review: Meets Criteria for Reactive NST NST Review and Verified By : Neyda Bellavanclj RNC NST Results: Reactive NST REPORT Report Trigger: Send Report
== END 2016-07-13 10:34 | disposition home or self-care (01) ==
LOC: LC 09:00
PROVIDERS: ATTEND Student in an Organized Health Care Education/Training Program
PROC: 4A1HXCZ Monitoring of Products of Conception, Cardiac Rate, External Approach (ICD-10-PCS; principal; 2016-07-13)
DX: Z34.93 Encounter for supervision of normal pregnancy, unspecified, third trimester (principal); Z36 Encounter for antenatal screening of mother; Z3A.34 34 weeks gestation of pregnancy
CPT/HCPCS: 59025; 80307; 81001

== ENCOUNTER 2016-08-07 16:32 | Outpatient (CLI) | payer MEDICAID ==
[2016-08-07 17:34] LABS: APPEARANCE,URINE CLOUDY; BILIRUBIN,URINE NEGATIVE (NEGATIVE); GLUCOSE, URINE NEGATIVE (NEGATIVE); KETONES,URINE NEGATIVE (NEGATIVE); LEUKOCYTE ESTERASE,URINE NEGATIVE (NEGATIVE); NITRITE,URINE NEGATIVE (NEGATIVE); PROTEIN,URINE NEGATIVE (NEGATIVE); URINE SPECIFIC GRAVITY 1.013; UROBILINOGEN,URINE NEGATIVE mg/dL (<2.0)
[2016-08-07] MEDS ORDERED: DIBUCAINE 1% OINTMENT 28 GM TP PRN (17:43)
[2016-08-07] MEDS ORDERED: MEASLES,MUMPS&RUBELLA VACC/PF 0.5 ML VIAL SUBCUT PRN (17:43)
[2016-08-07] MEDS ORDERED: BENZOCAINE/MENTHOL AEROSOL SPRAY 56 ML TOP PRN (17:43)
[2016-08-07] MEDS ORDERED: ACETAMINOPHEN WITH CODEINE #3 TABLET PO PRN ×2 (17:43)
[2016-08-07] MEDS ORDERED: DIPH/PERTUSS(ACELL)/TETANUS VAC/PF 0.5 ML SYR (>=10YO) IM PRN (17:43)
[2016-08-07] MEDS ORDERED: ZOLPIDEM TARTRATE 5 MG TABLET PO PRN (17:43)
[2016-08-07 17:51] LABS: URINE BARBITURATES SCREEN NEGATIVE; URINE METHADONE SCREEN NEGATIVE; URINE OPIATES LOW NEGATIVE; URINE PHENCYCLIDINE SCREEN NEGATIVE
--- NOTE | 2016-08-07 17:55 | Non Stress Test Report ---
Non Stress Test Datetime Report Generated by CPN: 08/07/2016 17:54 DEMOGRAPHIC EGA NST: 38.1 INDICATION Indication for Study: Ordered by Provider Indication for Study (NST) Other: abd pain MONITORING Monitor Explained: Monitor Explained; Test Explained; Patient Verbalized Understanding Time on Monitor: 08/07/2016 16:53 Time off Monitor: 08/07/2016 17:49 NST Duration: 56 NST INTERVENTIONS Physician Notified NST: Dr Dooley BABY A: [id number] BABY A Movement : Present Contraction Frequency : irregular FHR Baseline : 135 Accelerations : 15X15 Decelerations : None Variability : Moderate 6-25bpm NST Review: Meets Criteria for Reactive NST NST Review and Verified By : CHECO Adams Results: Reactive NST REPORT Report Trigger: Send Report
[2016-08-07] MEDS ORDERED: DOCUSATE SODIUM 100 MG CAPSULE PO SCH (18:00)
[2016-08-07] MEDS ORDERED: FERROUS SULFATE 325 MG TABLET PO SCH (18:00)
[2016-08-07] MEDS ORDERED: IBUPROFEN 800 MG TABLET PO SCH (22:00)
[2016-08-08] MEDS ORDERED: SENNOSIDES/DOCUSATE 8.6-50 MG 1 EACH TABLET PO SCH (10:00)
[2016-08-08] MEDS ORDERED: PRENATAL VITAMIN W-O CA NO5/FE FUMARATE/FA CAPSULE PO SCH (10:00)
== END 2016-08-07 17:55 | disposition home or self-care (01) ==
LOC: LC 16:32
PROVIDERS: ATTEND Obstetrics & Gynecology
PROC: 4A1HXCZ Monitoring of Products of Conception, Cardiac Rate, External Approach (ICD-10-PCS; principal; 2016-08-07)
DX: O47.1 False labor at or after 37 completed weeks of gestation (principal); Z3A.37 37 weeks gestation of pregnancy
CPT/HCPCS: 59025; 80307; 81005

== ENCOUNTER 2016-08-18 11:48 | Outpatient (CLI) | payer MEDICAID ==
--- NOTE | 2016-08-18 13:12 | Non Stress Test Report ---
Non Stress Test Datetime Report Generated by CPN: 08/18/2016 13:12 DEMOGRAPHIC EGA NST: 39.5 INDICATION Indication for Study: Ordered by Provider MONITORING Monitor Explained: Monitor Explained; Test Explained; Patient Verbalized Understanding Time on Monitor: 08/18/2016 12:02 Time off Monitor: 08/18/2016 13:05 NST Duration: 63 NST INTERVENTIONS NST Interventions: PO Hydration; Reposition Patient Physician Notified NST: Dr. Kapoor BABY A: [id number] BABY A Movement : Present Contraction Frequency : 0 FHR Baseline : 150 Accelerations : 15X15 Decelerations : None Variability : Moderate 6-25bpm NST Review: Meets Criteria for Reactive NST NST Review and Verified By : Coby donahue RNC NST Results: Reactive NST REPORT Report Trigger: Send Report
== END 2016-08-18 13:14 | disposition home or self-care (01) ==
LOC: LC 11:48
PROVIDERS: ATTEND Obstetrics & Gynecology
PROC: 4A1HXCZ Monitoring of Products of Conception, Cardiac Rate, External Approach (ICD-10-PCS; principal; 2016-08-18)
DX: Z34.93 Encounter for supervision of normal pregnancy, unspecified, third trimester (principal); Z36 Encounter for antenatal screening of mother; Z3A.39 39 weeks gestation of pregnancy
CPT/HCPCS: 59025

== ENCOUNTER 2016-08-22 11:24 | Inpatient (IN) | payer MEDICAID ==
[2016-08-27 19:02] LABS: APPEARANCE,URINE SLIGHTLY-CLOUDY; BILIRUBIN,URINE NEGATIVE (NEGATIVE); GLUCOSE, URINE NEGATIVE (NEGATIVE); KETONES,URINE NEGATIVE (NEGATIVE); LEUKOCYTE ESTERASE,URINE NEGATIVE (NEGATIVE); NITRITE,URINE NEGATIVE (NEGATIVE); PROTEIN,URINE 30 mg/dL (NEGATIVE); URINE SPECIFIC GRAVITY 1.019; UROBILINOGEN,URINE NEGATIVE mg/dL (<2.0)
[2016-08-27 19:21] LABS: URINE BARBITURATES SCREEN NEGATIVE; URINE METHADONE SCREEN NEGATIVE; URINE OPIATES LOW NEGATIVE; URINE PHENCYCLIDINE SCREEN NEGATIVE
[2016-08-27] MEDS ORDERED: ZOLPIDEM TARTRATE 5 MG TABLET PO PRN (20:47)
[2016-08-27] MEDS ORDERED: MAG HYDROX/AL HYDROX/SIMETH SUSP 30 ML UDCUP PO PRN (20:47)
[2016-08-27] MEDS ORDERED: RINGERS SOLUTION,LACTATED 300 ML IV ONE (20:47)
[2016-08-27] MEDS ORDERED: ACETAMINOPHEN 325 MG TABLET PO PRN (20:47)
[2016-08-27] MEDS ORDERED: OXYTOCIN/NORMAL SALINE 1,000 ML IV PRN ×2 (20:47→21:15)
[2016-08-27] MEDS ORDERED: DINOPROSTONE 10 MG VAGINAL INSERT.SR PV ONE (20:47)
[2016-08-27 21:24] LABS: ABSOLUTE LYMPHOCYTES (AUTO) 1.4 10^3/uL (0.5-4.7); ABSOLUTE MONOCYTES (AUTO) 0.7 10^3/uL (0.1-1.4); ABSOLUTE NEUT (AUTO) 7.7 10^3/uL (1.7-8.2); BASOPHILS % (AUTO) 0.3 % (0-2); EOSINOPHILS % (AUTO) 0.5 % (0-6); HEMATOCRIT 40.2 % (36.0-47.0); HEMOGLOBIN 13.4 g/dL (12.0-15.5); LYMPHOCYTES % (AUTO) 14.2 % (13-45); MEAN CORPUSCULAR HEMOGLOBIN 30.4 pg (27.0-33.4); MEAN CORPUSCULAR HGB CONC 33.3 g/dL (32.0-36.0); MEAN CORPUSCULAR VOLUME 91 fl (80-97); MONOCYTES % (AUTO) 6.8 % (3-13); RED CELL DISTRIBUTION WIDTH 15.6 % (11.5-14.0); SEGMENTED NEUTROPHILS % (AUTO) 78.2 % (42-78); WHITE BLOOD COUNT 9.9 10^3/uL (4.0-10.5)
[2016-08-27] MEDS: RINGERS SOLUTION,LACTATED 1,000 ML IV PRN (21:40)
[2016-08-27] MEDS ORDERED: ZOLPIDEM TARTRATE 5 MG TABLET ONE (22:41)
[2016-08-28] MEDS ORDERED: GLYCERIN/WITCH HAZEL LEAF 1 EACH MED..PAD TP PRN (05:20)
[2016-08-28] MEDS ORDERED: PROMETHAZINE HCL 25 MG SUPP.RECT PR PRN (05:20)
[2016-08-28] MEDS ORDERED: DIPHENHYDRAMINE HCL 25 MG CAPSULE PO PRN (05:20)
[2016-08-28] MEDS ORDERED: PROMETHAZINE HCL INJ 25 MG/1 ML VIAL IV PRN (05:20)
[2016-08-28] MEDS ORDERED: ACETAMINOPHEN 650 MG SUPP.RECT PR PRN (05:20)
[2016-08-28] MEDS ORDERED: MAGNESIUM HYDROXIDE SUSP 30 ML UDCUP PO PRN (05:20)
[2016-08-28] MEDS ORDERED: PROMETHAZINE HCL 25 MG TABLET PO PRN (05:20)
[2016-08-28] MEDS ORDERED: PSEUDOEPHEDRINE HCL 30 MG TABLET PO PRN (05:20)
[2016-08-28] MEDS ORDERED: NA PHOS,M-B/NA PHOS,DI-BA (ADULT) 133 ML ENEMA PR PRN (05:20)
[2016-08-28] MEDS ORDERED: MAG HYDROX/AL HYDROX/SIMETH SUSP 30 ML UDCUP ONE ×2 (05:27→16:21)
[2016-08-28] MEDS: RINGERS SOLUTION,LACTATED 1,000 ML IV PRN (05:32)
[2016-08-28] MEDS ORDERED: MISOPROSTOL 0.1 MG TABLET ONE ×2 (11:31→15:49)
[2016-08-28] MEDS ORDERED: MISOPROSTOL 0.1 MG TABLET VG ONE ×2 (11:32→15:40)
[2016-08-28] MEDS ORDERED: MAG HYDROX/AL HYDROX/SIMETH SUSP 30 ML UDCUP PO ONE (16:21)
[2016-08-28] MEDS ORDERED: NALBUPHINE HCL INJ 10 MG/1 ML AMPULE INJ ONE (21:17)
[2016-08-28] MEDS ORDERED: NALBUPHINE HCL INJ 10 MG/1 ML AMPULE ONE (21:22)
[2016-08-28] MEDS ORDERED: LIDOCAINE 1% INJ-PF (10 MG/ML) 30 ML SDV ONE (21:38)
[2016-08-28] MEDS ORDERED: MISOPROSTOL 0.2 MG TABLET ONE (21:38)
[2016-08-28] MEDS ORDERED: OXYTOCIN/NORMAL SALINE 20 UNIT/1,000 ML RTUINJ ONE (21:38)
[2016-08-29] MEDS ORDERED: NALBUPHINE HCL INJ 10 MG/1 ML AMPULE INJ ONE (01:06)
[2016-08-29] MEDS ORDERED: NALBUPHINE HCL INJ 10 MG/1 ML AMPULE ONE (01:10)
[2016-08-29] MEDS ORDERED: FENTANYL/BUPIVACAINE/NS/PF 200 MCG/100 ML RTUINJ EPI ONE (02:21)
[2016-08-29] MEDS ORDERED: EPHEDRINE SULFATE INJ 50 MG/1 ML AMPULE ONE (02:21)
[2016-08-29] MEDS ORDERED: BUPIVACAINE HCL 0.25 % INJ/PF (2.5 MG/1 ML) 30 ML VIAL ONE (02:22)
[2016-08-29] MEDS ORDERED: BENZOIN/ALOE VERA/STORAX/TOLU TINCTURE 60 ML TP PRN (03:32)
[2016-08-29] MEDS ORDERED: FENTANYL/BUPIVACAINE/NS/PF 100 ML EPI PRN (03:32)
[2016-08-29] MEDS ORDERED: BUPIVACAINE HCL 0.25 % INJ/PF (2.5 MG/1 ML) 30 ML VIAL INFIL ONE (03:32)
[2016-08-29] MEDS ORDERED: ONDANSETRON HCL INJ/PF 4 MG/2 ML SDV ONE (04:40)
--- NOTE | 2016-08-29 08:43 | L&D Progress Notes ---
PROGRESS NOTES Datetime Report Generated by CPN: 08/29/2016 08:42 PROGRESS NOTE Impression: Normal Progression of Labor Plan: Continue Present Management; Induction; Anticipate Vaginal Delivery Informed Consent Obtained: Vaginal Delivery; Section Delivery; Risks, Benefits and Alternatives Discussed Vital Signs : Reviewed Comment: 30 yo admitted on [place] 08/27/2016 for postdates induction prental history - one previous spontaneous abortions / one elected termination NKDA abnormal 1 hour-3 hour wnl abdomen nontender FHTs 130s average variability/ +accels Postdates Rubella non immune cervix c/c./+[address] pt in high t[place] reviwed laboring down- pt consents anticipate vaginal delivery VAGINAL EXAM Dilatation: 10 Dilatation: 1 Effacement: 100 Effacement: 70 Station: 1 Station: -2 MEMBRANES Pooling: Negative Membranes: Intact FETUS A FHR - Baseline: 130 Monitoring: External US Variability: Marked >25bpm FHR Category: Category I : 41.0 SIGNATURE SIGNATURE: [id number] SIGNATURE: [id number] SIGNATURE: [id number] SIGNATURE: [id number] SIGNATURE: [id number] Assignment: Mani Dooley MD Signature: with User ID: [email or web address] : with User ID: [email or web address]
--- NOTE | 2016-08-29 15:07 | Admission Physical ---
Datetime Report Generated by CPN: 08/29/2016 15:06 CURRENT ADMISSION Chief Complaint: Scheduled Induction of Labor Indication for Induction: Post Dates Admit Plan: Admit to Unit ALLERGIES Medication Allergies: No Medication Allergies: No Known Allergies (07/13/2016) Medication Allergies: No Known Allergies (06/09/2016) Medication Allergies: No Known Allergies (04/11/2016) Medication Allergies: No Known Allergies (07/07/2015) Latex: No Latex Allergies OBSTETRICAL HISTORY EDC: 08/20/2016 00:00 : 3 Para: 0 Term: 0 : 0 SAB: 1 IAB: 1 Ectopic: 0 Livin Cesareans: 0 VBACs: 0 Multiple Births: 0 Gestational Diabetes: No Rh Sensitization: No Incompetent Cervix: No MATT: No Infertility: No ART Treatment: No Uterine Anomaly: No IUGR: No Hx Previous C/S: No Macrosomia: No Hx Loss/Stillborn: No PIH: No Hx : No Placenta Previa/Abruption: No Depression/PP Depression: No PTL/PROM: No Post Hemorrhage: No Current Procedures: Ultrasound; NST Obstetrical History Comments: G1--IA2008 G2--2014 8 weeks SEE RECORDS Alcohol: No Marijuana : No Cocaine: No Other Illicit Drugs: No Cigarettes: Former Smoker. 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 Heart Disease: No Hosp/Surgery: No Autoimmune Disorder: No Anesthetic Complications: No Kidney Disease: No Abnormal Pap Smear: Yes Neuro/Epilepsy: No Psychiatric Disorders: Yes Other Medical Diseases: No Hepatitis/Liver Disease: No Significant Family History: No Varicosities/Phlebitis: No Trauma/Violence : No Thyroid Dysfunction: No Medical History Comments: LEEP 2008 IAB 2008 hx depression--no medications since 12/2015 anxiety INFECTIOUS HISTORY Gonorrhea: No Genital Herpes: No Chlamydia: No Tuberculosis: No Syphilis: No Hepatitis: No HIV/AIDS Exposure: No Rash or Viral Illness: No HPV: No PHYSICAL EXAM General: Normal HEENT: Normal Neurologic: Normal Thyroid: Normal Heart: Normal Lungs: Normal Breast: Deferred Back: Normal Abdomen: Normal Genitourinary Exam: Normal Extremities: Normal DTRs: Normal Pelvic Type: Adequate Vital Signs: Reviewed VAGINAL EXAM Dilatation: 10 Dilatation: 1 Effacement: 100 Effacement: 70 Station: 1 Station: -2 MEMBRANES Pooling: Negative Membranes: Intact FETUS A EGA: 41.0 Monitoring: External US FHR- Baseline: 130 Decelerations: None Admit Comment: migraines PLANS FOR LABOR AND DELIVERY Labor and Delivery: Plan; Placenta Request Pain Management: Natural Feeding Preference: Breast Benefit of Breast Feed Discussed: Yes Circumcision: Yes INFORMED CONSENT Informed Consent Obtained: Vaginal Delivery; Section Delivery; Risks, Benefits and Alternatives Discussed Signature: with User ID: [email or web address]
[2016-08-29] MEDS ORDERED: PROMETHAZINE HCL 25 MG TABLET PO PRN (15:43)
[2016-08-29] MEDS ORDERED: PSEUDOEPHEDRINE HCL 30 MG TABLET PO PRN (15:43)
[2016-08-29] MEDS ORDERED: DIPH/PERTUSS(ACELL)/TETANUS VAC/PF 0.5 ML SYR (>=10YO) IM PRN (15:43)
[2016-08-29] MEDS ORDERED: PROMETHAZINE HCL INJ 25 MG/1 ML VIAL IV PRN (15:43)
[2016-08-29] MEDS ORDERED: GLYCERIN/WITCH HAZEL LEAF 1 EACH MED..PAD TP PRN (15:43)
[2016-08-29] MEDS ORDERED: PROMETHAZINE HCL 25 MG SUPP.RECT PR PRN (15:43)
[2016-08-29] MEDS ORDERED: MEASLES,MUMPS&RUBELLA VACC/PF 0.5 ML VIAL SUBCUT PRN (15:43)
[2016-08-29] MEDS ORDERED: MAGNESIUM HYDROXIDE SUSP 30 ML UDCUP PO PRN (15:43)
[2016-08-29] MEDS ORDERED: ACETAMINOPHEN WITH CODEINE #3 TABLET PO PRN (15:43)
[2016-08-29] MEDS ORDERED: ACETAMINOPHEN 650 MG SUPP.RECT PR PRN (15:43)
[2016-08-29] MEDS ORDERED: DIPHENHYDRAMINE HCL 25 MG CAPSULE PO PRN (15:43)
[2016-08-29] MEDS ORDERED: NA PHOS,M-B/NA PHOS,DI-BA (ADULT) 133 ML ENEMA PR PRN (15:43)
[2016-08-29] MEDS ORDERED: DIBUCAINE 1% OINTMENT 28 GM TP PRN (15:43)
[2016-08-29] MEDS ORDERED: BENZOCAINE/MENTHOL AEROSOL SPRAY 56 ML TOP PRN (15:43)
[2016-08-29] MEDS ORDERED: ZOLPIDEM TARTRATE 5 MG TABLET PO PRN (15:43)
[2016-08-29] MEDS: ACETAMINOPHEN WITH CODEINE #3 TABLET PO PRN ×2 (16:50→22:15)
[2016-08-29] MEDS: DOCUSATE SODIUM 100 MG CAPSULE PO SCH (18:29)
[2016-08-29] MEDS: FERROUS SULFATE 325 MG TABLET PO SCH (18:29)
[2016-08-29] MEDS: IBUPROFEN 800 MG TABLET PO SCH (22:16)
[2016-08-29] MEDS: FAMOTIDINE 20 MG TABLET PO SCH (22:22)
[2016-08-30] MEDS: IBUPROFEN 800 MG TABLET PO SCH ×3 (06:07→22:35)
[2016-08-30 06:31] LABS: HEMATOCRIT 34.5 % (36.0-47.0); HEMOGLOBIN 11.4 g/dL (12.0-15.5); HGB HCT DIFFERENCE -0.3; MEAN CORPUSCULAR HEMOGLOBIN 30.5 pg (27.0-33.4); MEAN CORPUSCULAR HGB CONC 33.1 g/dL (32.0-36.0); MEAN CORPUSCULAR VOLUME 92 fl (80-97); RED BLOOD COUNT 3.74 10^6/uL (3.72-5.28); RED CELL DISTRIBUTION WIDTH 16.1 % (11.5-14.0); WHITE BLOOD COUNT 12.6 10^3/uL (4.0-10.5)
[2016-08-30] MEDS: PRENATAL VITAMIN W-O CA NO5/FE FUMARATE/FA CAPSULE PO SCH (09:28)
[2016-08-30] MEDS: SENNOSIDES/DOCUSATE 8.6-50 MG 1 EACH TABLET PO SCH (09:28)
[2016-08-30] MEDS: FERROUS SULFATE 325 MG TABLET PO SCH ×2 (09:29→18:14)
[2016-08-30] MEDS: DOCUSATE SODIUM 100 MG CAPSULE PO SCH ×2 (09:29→18:14)
[2016-08-30] MEDS: FAMOTIDINE 20 MG TABLET PO SCH ×2 (09:29→22:35)
--- NOTE | 2016-08-30 09:42 | PDOC PROGRESS REPORT ---
Subjective-OB Subjective: Post Delivery Day: 1 30 year old. Denies any needs at this time, states lochia is stable, pain is well controlled, voiding without difficulty. Physical Exam (OB) Vital Signs: Temp Pulse Resp BP Pulse Ox 97.1 F 80 16 120/66 98 08/30/16 07:39 08/30/16 07:39 08/30/16 07:39 08/30/16 07:39 08/30/16 07:39 Intake & Output 08/29/16 08/30/16 08/31/16 06:59 06:59 06:59 Intake Total 600 Balance 600 - PIH/Pre-Eclampsia DTR's: 2 + Clonus: Negative Headache: Absent Epigastric Pain: No Visual Changes: No - Lochia Lochia Amount: Small 10-25 ml Lochia Color: Rubra/Red - Abdomen Description: Soft Hernia Present: No Fundal Description: Firm Fundal Height: u/u - u/2 Objective-Diagnostic Laboratory: 08/30/16 06:24 08/30/16 06:24 WBC 12.6 H RBC 3.74 Hgb 11.4 L Hct 34.5 L MCV 92 MCH 30.5 MCHC 33.1 RDW 16.1 H Plt Count 189 Assessment and Plan(PN) - Assessment and Plan (1) Vaginal delivery Is this a current diagnosis for this admission?: YesPlan: routine pp care - Time Spent with Patient Time with patient: Less than 15 minutes Critical Time spent with patient: Less than 15 minutes Medications reviewed and adjusted accordingly: Yes - Disposition Anticipated Discharge: Home Within: within 24 hours
--- NOTE | 2016-08-30 10:07 | Delivery Summary ---
Del Sum A-C Datetime Report Generated by [facility]: 08/30/2016 10:07 DELIVERY PERSONNEL DELIVERY PERSONNEL: [phone];[phone] DELIVERY PERSONNEL: [phone];[id number] DELIVERY PERSONNEL: [phone] DELIVERY PERSONNEL: [phone] DELIVERY PERSONNEL: [phone] DELIVERY PERSONNEL: [phone] Delivery Doctor:: Mani Dooley MD Nurse Electrostatic Painter Certified:: Philip Radford CNM Anesthesiologist:: Calderon Roland MD Labor and Delivery Nurse:: Bobby Archer RNegg and spice mixer Nurse:: CARLIN Berkowitz Customer Service Clerk:: Kathy Batista RN Nursery Nurse:: Karine Corbett RN (Annotations: Data stored by [facility] on behalf of user) Network Systems Administrator/GEM TECHNICIAN: Lashawn Archer CNA II MATERNAL INFORMATION Delivery Anesthesia: Epidural Medications After Delivery: Pitocin Drip 20 Units/1000ml NSS Estimated Blood Loss (ml): 350 Maternal Complications: None Provider Comments: pt with increased urge to push birthing bar in place delivery of male OA to JERRY nuchal x1 easily reduced to abdomen tactile stimulation elicits spontaneous cry cord clamped cut by pt cord blood obtained placenta intact delivered in yap fashion trailing membranes with uterine exploration fundus firm urine 150 cc approximately expelled EBL 350 cc 2nd degree vaginal laceration repaired under epidural with 2.0 and 3.0 chromic gut hemostasis achieved pt bonding with infant LABOR SUMMARY [facility]: 08/20/2016 00:00 No. Babies in Womb: 1 Attempted: No Labor Anesthesia: Epidural LABOR INFORMATION Reason for Induction: Post Dates Onset of Labor: 08/28/2016 20:00 Complete Dilatation: 08/29/2016 08:15 Cervical Ripening Agents: Cervidil; Cytotec @ Cervical Ripening Agents: Cytotec @ (Annotations: cervidil 25mcg vaginal) Cervical Ripening Agents: Cervidil Other Ripening Agents: cervidil 10mg vaginally, cytotec 25mcg x2 vaginal Oxytocin: Induction Group B Beta Strep: negative Antibiotics # of Doses: 0 Steroids Given: None Reason Steroids Not Administered: Not Applicable MEMBRANES Membranes Rupture Method: Spontaneous Rupture of Membranes: 08/29/2016 01:03 Length of Rupture (hr): 11.47 Amniotic Fluid Color: Clear Amniotic Fluid Amount: Small Amniotic Fluid Odor: Normal STAGES OF LABOR Stage 1 hr: 12 Stage 1 min: 15 Stage 2 hr: 4 Stage 2 min: 16 Stage 3 hr: 0 Stage 3 min: 4 Total Time in Labor hr: 16 Total Time in Labor min: 35 VAGINAL DELIVERY Episiotomy: None Laceration Extension: Second Degree Laceration Type: Perineal; Vaginal Laceration Repair: Yes Initial Vag Sponge Count: N/A Final Vag Sponge Count: N/A Initial Vag Sharps Count: N/A Final Vag Sharps Count: N/A Sponge Count Correct: Yes; Vaginal Sweep Performed Sharps Count Correct: Yes CSECTION DELIVERY Primary Indication: N/A Secondary Indication: N/A CSection Incidence: N/A Elective: N/A CSection Incision: N/A BABY A INFORMATION Infant Delivery Date/Time: 08/29/2016 12:31 Method of Delivery: Vaginal Born in Route : No : N/A Forceps: N/A Vacuum Extraction: N/A Shoulder Dystocia : No PRESENTATION/POSITION BABY A Presentation: Cephalic Presentation: Cephalic Cephalic Presentation: Vertex Vertex Position: Right Occipital Anterior Breech Presentation: N/A PLACENTA INFORMATION BABY A Placenta Delivery Time : 08/29/2016 12:35 Placenta Method of Delivery: Spontaneous Placenta Status: Delivered SCORES BABY A Heart Rate 1 min: >100 bpm Resp Effort 1 min: Good Cry Reflex Irritability 1 min: Cough or Sneeze or Pulls Away Muscle Tone 1 min: Active Motion Color 1 min: Blue/Pale Resuscitation Effort 1 min: Tactile Stimulation SCORE 1 MIN: 8 Heart Rate 5 min: >100 bpm Resp Effort 5 min: Good Cry Reflex Irritability 5 min: Cough or Sneeze or Pulls Away Muscle Tone 5 min: Active Motion Color 5 min: Body Calhan, Extremities Blue Resuscitation Effort 5 min: Tactile Stimulation SCORE 5 MIN: 9 Resuscitation Effort 10 min: N/A INFANT INFORMATION BABY A Gestational Age at Delivery: 41.2 Gestational Status: Late Term- 41- 41.6 Weeks Outcome : Liveborn Infant Condition : Stable Sex: Male IDENTIFICATION BABY A Verification Date/Time: 08/29/2016 13:34 ID Band Number: [id number] Mother's Name Verified: Yes Infant RN Verifying Infant: D Bellavance RNC/[employer] WEIGHT/LENGTH BABY A Birthweight (gm): 4170 Infant Weight (lb): 9 Infant Weight (oz): 3 Infant Length (in): 21.25 Length (cm): 53.98 CORD INFORMATION BABY A No. Cord Vessels: 3 Nuchal Cord : Around Neck x1, Loose Cord Blood Taken: Yes-For Storage (Mom's Blood type +) Suction: Mouth; Nose ASSESSMENT BABY A Infant Complications: Meconium Complications- Other: terminal mec Physical Findings at Delivery: Caput Succedaneum; Molding of the Head Infant Respirations: Appears Normal Skin to Skin: Yes Skin to Skin Time (min): 30 Restorative Care Technician/ALS Called : No Infant Care By: D Bellavance RNC Transferred To: Remains with Mother BABY B INFORMATION : N/A SIGNATURES Assignment: Mani Dooley MD Signature: with User ID: Rey : with User ID: Rey
[2016-08-30] MEDS: ACETAMINOPHEN WITH CODEINE #3 TABLET PO PRN ×2 (10:45→22:34)
[2016-08-31] MEDS: IBUPROFEN 800 MG TABLET PO SCH ×2 (06:37→13:21)
[2016-08-31 08:07] VITALS: BP 116/69
[2016-08-31] MEDS ORDERED: PROMETHAZINE HCL 25 MG TABLET PO PRN (08:17)
[2016-08-31] MEDS ORDERED: PROMETHAZINE HCL 25 MG SUPP.RECT PR PRN (08:17)
[2016-08-31] MEDS ORDERED: ONDANSETRON 4 MG TAB.RAPDIS PO PRN (08:18)
[2016-08-31] MEDS ORDERED: PROMETHAZINE HCL INJ 25 MG/1 ML VIAL IV PRN (08:18)
[2016-08-31] MEDS: FAMOTIDINE 20 MG TABLET PO SCH (09:57)
[2016-08-31] MEDS: PRENATAL VITAMIN W-O CA NO5/FE FUMARATE/FA CAPSULE PO SCH (09:57)
[2016-08-31] MEDS: DOCUSATE SODIUM 100 MG CAPSULE PO SCH (09:57)
[2016-08-31] MEDS: FERROUS SULFATE 325 MG TABLET PO SCH (09:57)
[2016-08-31] MEDS: SENNOSIDES/DOCUSATE 8.6-50 MG 1 EACH TABLET PO SCH (09:57)
--- NOTE | 2016-08-31 09:59 | PDOC PROGRESS REPORT ---
Subjective-OB Subjective: Post Delivery Day: 30 year old. Denies any needs at this time Doing well, no c/o, ready to go home, baby is jaundice and unsure if baby is going,breast feeding, voiding, scant bleeding Physical Exam (OB) Vital Signs: Temp Pulse Resp BP Pulse Ox 98.0 F 78 16 116/69 98 08/31/16 07:40 08/31/16 07:40 08/31/16 07:40 08/31/16 07:40 08/30/16 20:30 Intake & Output 08/30/16 08/31/16 09/01/16 06:59 06:59 06:59 Intake Total 600 500 Balance 600 500 - PIH/Pre-Eclampsia DTR's: 2 + Clonus: Negative Headache: Absent Epigastric Pain: No Visual Changes: No - Lochia Lochia Amount: Scant < 10 ml Lochia Color: Rubra/Red - Abdomen Description: Soft, Round Hernia Present: No Fundal Description: Firm, Midline Fundal Height: u/u - u/2 Objective-Diagnostic Laboratory: 08/30/16 06:24 Assessment and Plan(PN) - Assessment and Plan (1) Depression Qualifiers: Depression Type: unspecified Qualified Code(s): F32.9 - Major depressive disorder, single episode, unspecified Is this a current diagnosis for this admission?: Yes (2) Anxiety Is this a current diagnosis for this admission?: Yes (3) Vaginal delivery Is this a current diagnosis for this admission?: Yes - Time Spent with Patient Time with patient: Less than 15 minutes Medications reviewed and adjusted accordingly: Yes - Disposition Anticipated Discharge: Home Within: Other - home today
--- NOTE | 2016-08-31 10:03 | PDOC DISCHARGE SUMMARY ---
Final Diagnosis Discharge Date: 08/31/16 - Final Diagnosis (1) Depression Is this a current diagnosis for this admission?: Yes (2) Anxiety Is this a current diagnosis for this admission?: Yes (3) Vaginal delivery Is this a current diagnosis for this admission?: Yes Discharge Data - Discharge Medication Home Medications: Pnv95/Iron Fum/Folic Acid [ Caplet] 1 tab PO DAILY 04/11/16 Calcium Carbonate [Calci-Chew] 500 mg PO DAILY 08/27/16 Famotidine [Pepcid 40 mg Tablet] 40 mg PO DAILY 08/27/16 Magnesium Oxide [Magnesium] 500 mg PO DAILY 08/27/16 Gestational Age: 41.2 Reason(s) for Admission: Induction of Labor Procedures: NST, Ultrasound Intrapartum Procedure(s): Spontaneous Vaginal Delivery Intrapartum Procedure Note: Meconium, caput Complication(s): Laceration-Vaginal, Laceration-Perineal Laceration-Degree: 2nd - Data Baby 1 Male at 1 minute: 8 at 5 minutes: 9 Weight: 4.167 kg Home with Mother: Yes Complications: No - Diagnosis Test Laboratory: Temp Pulse Resp BP Pulse Ox 98.0 F 78 16 116/69 98 08/31/16 07:40 08/31/16 07:40 08/31/16 07:40 08/31/16 07:40 08/30/16 20:30 08/27/16 08/27/16 08/30/16 18:42 20:58 06:24 RBC 4.40 3.74 Hgb 13.4 11.4 L Hct 40.2 34.5 L Urine Opiates Screen NEGATIVE - Discharge information/Instructions Discharge Activity: Activity As Tolerated, No Lifting Over 10 Pounds, No Lifting /Push/Pulling, Pelvic Rest Discharge Diet: As Tolerated, Regular Disposition: HOME, SELF-CARE Follow up with: [facility] in: 4, Weeks
== END 2016-08-31 15:27 | disposition home or self-care (01) | DRG 775 ==
LOC: LR 08-27 18:11 → 2S 08-29 15:00
PROVIDERS: ADMIT Obstetrics & Gynecology; ATTEND Obstetrics & Gynecology
PROC: 4A1HXCZ Monitoring of Products of Conception, Cardiac Rate, External Approach (ICD-10-PCS; 2016-08-27)
PROC: 3E0P7GC Introduction of Other Therapeutic Substance into Female Reproductive, Via Natural or Artificial Opening (ICD-10-PCS; 2016-08-27)
PROC: 10E0XZZ Delivery of Products of Conception, External Approach (ICD-10-PCS; principal; 2016-08-29)
PROC: 0KQM0ZZ Repair Perineum Muscle, Open Approach (ICD-10-PCS; 2016-08-29)
PROC: 3E0234Z Introduction of Serum, Toxoid and Vaccine into Muscle, Percutaneous Approach (ICD-10-PCS; 2016-08-31)
DX: O48.0 Post-term pregnancy (principal); O70.1 Second degree perineal laceration during delivery; O99.344 Other mental disorders complicating childbirth; O77.0 Labor and delivery complicated by meconium in amniotic fluid; O69.81X0 Labor and delivery complicated by cord around neck, without compression, not applicable or unspecified; F41.9 Anxiety disorder, unspecified; Z87.891 Personal history of nicotine dependence; F32.9 Major depressive disorder, single episode, unspecified; Z23 Encounter for immunization; Z3A.41 41 weeks gestation of pregnancy; Z37.0 Single live birth
CPT/HCPCS: 36415; 80307; 81005; 85025; 85027; 86592; 86850; 86900; 86901; 90707; 90715; 94760; J2300; J2405; J2590; J3490; S0119

== ENCOUNTER 2016-08-25 09:20 | Outpatient (CLI) | payer MEDICAID ==
--- NOTE | 2016-08-25 10:02 | Non Stress Test Report ---
Non Stress Test Datetime Report Generated by CPN: 08/25/2016 10:02 DEMOGRAPHIC EGA NST: 40.5 INDICATION Indication for Study: Ordered by Provider VITAL SIGNS Temperature - NST: 98.5 Pulse - NST: 75 RESP - NST: 18 NBPSYS NST: 127 NBPDIA NST: 81 MONITORING Monitor Explained: Monitor Explained; Test Explained; Patient Verbalized Understanding Time on Monitor: 08/25/2016 09:34 Time off Monitor: 08/25/2016 09:56 NST Duration: 22 NST INTERVENTIONS NST Interventions: None Physician Notified NST: H Oli CNM BABY A: [id number] BABY A Movement : Present Contraction Frequency : none FHR Baseline : 140 Accelerations : 15X15 Decelerations : None Variability : Moderate 6-25bpm NST Review: Meets Criteria for Reactive NST NST Review and Verified By : Neyda Bradford RNC NST Results: Reactive NST REPORT Report Trigger: Send Report
== END 2016-08-25 10:02 | disposition home or self-care (01) ==
LOC: LC 09:20
PROVIDERS: ATTEND Obstetrics & Gynecology
PROC: 4A1HXCZ Monitoring of Products of Conception, Cardiac Rate, External Approach (ICD-10-PCS; principal; 2016-08-25)
DX: O09.523 Supervision of elderly multigravida, third trimester (principal); Z3A.40 40 weeks gestation of pregnancy
CPT/HCPCS: 59025

== ENCOUNTER 2016-09-01 14:13 | Emergency (ER) | payer OTHER, MEDICAID ==
--- NOTE | 2016-09-01 14:52 | ER Document Report ---
ED Medical Screen (RME) - General Chief Complaint: Breathing Difficulty Stated Complaint: DIFFICULTY BREATHING Time Seen by Provider: 09/01/16 14:41 Notes: 30-year-old female patient delivered on 08/29/2016. Reports shortness of breath postdelivery. It is been getting progressively worse. She was discharged yesterday with a diagnosis of anxiety. She reports the shortness of breath is getting worse. Cough if she takes a deep breath, she will wake up gasping for breath when she lays down to sleep. I have greeted and performed a rapid initial assessment of this patient. A comprehensive ED assessment and evaluation of the patient, analysis of test results and completion of the medical decision making process will be conducted by additional ED providers. TRAVEL OUTSIDE OF THE [place] IN LAST 30 DAYS: No - Related Data Allergies/Adverse Reactions: No Known Allergies Allergy (Verified 09/01/16 14:25) Past Medical History - Social History Chew tobacco use (# tins/day): No Frequency of alcohol use: None Drug Abuse: None Renal/ Medical History: Denies: Hx Peritoneal Dialysis Psychiatric Medical History: Reports: Hx Depression Past Surgical History: Reports: Hx Adenoidectomy, Hx Gynecologic Surgery - Elective - Immunizations Hx Diphtheria, Pertussis, Tetanus Vaccination: Yes Physical Exam - Vital signs Vitals: Temp Pulse Resp BP Pulse Ox 97.9 F 93 16 134/69 H 99 09/01/16 14:25 09/01/16 14:25 09/01/16 14:25 09/01/16 14:25 09/01/16 14:25 Course - Vital Signs Vital signs: Temp Pulse Resp BP Pulse Ox 97.9 F 93 16 134/69 H 99 09/01/16 14:25 09/01/16 14:25 09/01/16 14:25 09/01/16 14:25 09/01/16 14:25
[2016-09-01 15:17] LABS: ABSOLUTE EOSINOPHILS # (AUTO) 0.3 10^3/uL (0.0-0.6); ABSOLUTE LYMPHOCYTES (AUTO) 1.2 10^3/uL (0.5-4.7); ABSOLUTE MONOCYTES (AUTO) 0.6 10^3/uL (0.1-1.4); ABSOLUTE NEUT (AUTO) 6.3 10^3/uL (1.7-8.2); BASOPHILS % (AUTO) 0.5 % (0-2); EOSINOPHILS % (AUTO) 3.1 % (0-6); HEMATOCRIT 36.7 % (36.0-47.0); HEMOGLOBIN 12.4 g/dL (12.0-15.5); HGB HCT DIFFERENCE 0.5; LYMPHOCYTES % (AUTO) 14.4 % (13-45); MEAN CORPUSCULAR HEMOGLOBIN 30.5 pg (27.0-33.4); MEAN CORPUSCULAR HGB CONC 33.7 g/dL (32.0-36.0); MEAN CORPUSCULAR VOLUME 91 fl (80-97); MONOCYTES % (AUTO) 6.8 % (3-13); RED BLOOD COUNT 4.06 10^6/uL (3.72-5.28); RED CELL DISTRIBUTION WIDTH 16.2 % (11.5-14.0); SEGMENTED NEUTROPHILS % (AUTO) 75.2 % (42-78); WHITE BLOOD COUNT 8.4 10^3/uL (4.0-10.5)
[2016-09-01 15:36] LABS: ALANINE AMINOTRANSFERASE 37 U/L (9-52); ALBUMIN 3.5 g/dL (3.5-5.0); ALKALINE PHOSPHATASE 137 U/L (38-126); ANION GAP 12 (5-19); ASPARTATE AMINO TRANSFERASE 35 U/L (14-36); BILIRUBIN,DIRECT 0.3 mg/dL (0.0-0.4); BILIRUBIN,TOTAL 0.6 mg/dL (0.2-1.3); BLOOD UREA NITROGEN 8 mg/dL (7-20); CALCIUM 9.4 mg/dL (8.4-10.2); CARBON DIOXIDE 25 mmol/L (22-30); CHLORIDE 104 mmol/L (98-107); CREATININE RESULT 0.62 mg/dL (0.52-1.25); GLUCOSE 85 mg/dL (75-110); SODIUM 140.5 mmol/L (137-145); TOTAL PROTEIN 6.8 g/dL (6.3-8.2)
--- NOTE | 2016-09-01 16:53 | RADIOLOGY REPORT (SQ) ---
EXAM DESCRIPTION: CTA CHEST COMPLETED DATE/TIME: 09/01/2016 4:43 pm REASON FOR STUDY: post dyspnea COMPARISON: None. TECHNIQUE: CT scan of the chest performed using helical scanning technique with dynamic intravenous contrast injection. Images reviewed with lung, soft tissue and bone windows. Reconstructed coronal and sagittal MPR images reviewed. Additional 3 dimensional post-processing performed to develop Maximal Intensity Projection images (MD P). All images stored on PACS. All CT scanners at this facility use dose modulation, iterative reconstruction, and/or weight based d osing when appropriate to reduce radiation dose to as low as reasonably achievable (ALARA). [facility]: Dose Right [facility]: CareDose [facility]: Dose Right [facility]: Teradose 4D [facility]: GuidesMob CONTRAST TYPE AND DOSE: 81 Isovue 370- low osmolar. RENAL FUNCTION: Creatinine 0.62 RADIATION DOSE: 52.68 mGy. LIMITATIONS: None. FINDINGS: LUNGS AND PLEURA: No masses, infiltrates, pneumothorax. No pleural effusions, calcificati ons. AORTA AND GREAT VESSELS: No aneurysm or dissection. HEART: No pericardial effusion. PULMONARY ARTERIES: No emboli visualized in the main pulmonary arteries or the segmental branches. HILAR AND MEDIASTINAL STRUCTURES: No identified masses or abnormal nodes. HARDWARE: None in the chest. UPPER ABDOMEN: No significant findings. Limited exam. THYROID AND OTHER SOFT TISSUES: No masses. No adenopathy. BONES: No acute or significant finding. 3D MIPS: Confirm above findings. OTHER: No other significant finding. IMPRESSION: NORMAL CTA OF THE CHEST. NO PULMONARY EMBOLI. TECHNICAL DOCUMENTATION: JOB ID: [id number] Quality ID # [id number]: Final reports with documentation of one or more dose reduction techniques (e.g., Au tomated exposure control, adjustment of the mA and/or kV according to patient size, use of iterative reconstruction technique) 2010 [employer]- All Rights Reserved
[2016-09-01] MEDS ORDERED: ALBUTEROL SULFATE 0.083% NEB 2.5 MG/3 ML AMPUL NEB ONE (17:05)
--- NOTE | 2016-09-01 17:11 | ER Document Report ---
ED General - General Chief Complaint: Breathing Difficulty Stated Complaint: DIFFICULTY BREATHING Time Seen by Provider: 09/01/16 14:41 Mode of Arrival: Ambulatory Information source: Patient Notes: This is a 30-year-old female who is day 3 status post vaginal delivery, who presents with persistent dyspnea since delivery. She states that her dyspnea is worse at night and often will wake her from sleep with gasping breaths. She states the symptoms have been persistent since she was in labor. She called her OB clinic today and was encouraged to come to the ER for further evaluation. Of note she denies any fevers or chills. No cough or congestion. No chest pain. She is breast-feeding. TRAVEL OUTSIDE OF THE [place] IN LAST 30 DAYS: No - Related Data Allergies/Adverse Reactions: No Known Allergies Allergy (Verified 09/01/16 14:25) Past Medical History - General Information source: Patient - Social History Smoking Status: Never Smoker Chew tobacco use (# tins/day): No Frequency of alcohol use: None Drug Abuse: None Family History: Reviewed & Not Pertinent Patient has suicidal ideation: No Patient has homicidal ideation: No - Medical History Medical History: Negative Renal/ Medical History: Denies: Hx Peritoneal Dialysis Psychiatric Medical History: Reports: Hx Depression Past Surgical History: Reports: Hx Adenoidectomy, Hx Gynecologic Surgery - Elective - Immunizations Hx Diphtheria, Pertussis, Tetanus Vaccination: Yes Review of Systems - Review of Systems Notes: REVIEW OF SYSTEMS: CONSTITUTIONAL : Denies fever, chills, or sweats. Denies recent illness. EENT: Denies eye, ear, throat, or mouth pain or symptoms. Denies nasal or sinus congestion. CARDIOVASCULAR: Denies chest pain. RESPIRATORY: Denies cough, cold, or chest congestion. Otherwise as per HPI GASTROINTESTINAL: Denies abdominal pain. Denies nausea, vomiting, or diarrhea. GENITOURINARY: Denies difficulty urinating, painful urination, burning, frequency, or blood in urine. MUSCULOSKELETAL: Denies neck or back pain or joint pain or swelling. SKIN: Denies rash or skin lesions. HEMATOLOGIC : Denies easy bruising or bleeding. LYMPHATIC: Denies swollen, enlarged glands. NEUROLOGICAL: Denies altered mental status or loss of consciousness. Denies headache. PSYCHIATRIC: Denies anxiety or stress or depression. ALL OTHER SYSTEMS REVIEWED AND NEGATIVE. Physical Exam - Vital signs Vitals: Temp Pulse Resp BP Pulse Ox 97.9 F 93 16 134/69 H 99 09/01/16 14:25 09/01/16 14:25 09/01/16 14:25 09/01/16 14:25 09/01/16 14:25 - Notes Notes: PHYSICAL EXAMINATION: GENERAL: Well-appearing, well-nourished and in no acute distress. Pleasant and conversant without conversational dyspnea. Frequent cough. HEAD: Atraumatic, normocephalic. EYES: Pupils equal round and reactive to light, extraocular movements intact, sclera anicteric, conjunctiva are normal. ENT: nares patent, oropharynx clear without exudates. Moist mucous membranes. NECK: Normal range of motion, supple without lymphadenopathy LUNGS: Breath sounds clear to auscultation bilaterally and equal. No wheezes rales or rhonchi. HEART: Regular rate and rhythm without murmurs ABDOMEN: Soft, nontender, normoactive bowel sounds. No guarding, no rebound. No masses appreciated. EXTREMITIES: Normal range of motion, no pitting or edema. NEUROLOGICAL: Cranial nerves grossly intact. No gross focal motor or sensory deficits appreciated PSYCH: Normal mood, normal affect. SKIN: Warm, Dry, normal turgor, no rashes or lesions noted. Course - Re-evaluation Re-evalutation: 09/01/16 18:30 CT angiogram of the chest demonstrates no acute abnormality specifically no pulmonary embolism. Patient has been hemodynamically stable in the emergency department. Her EKG and cardiac enzymes are reassuring and I see no evidence of cardiomyopathy today. She will follow-up with her OB physician as scheduled. Strict return precautions were discussed. She is reassured. - Vital Signs Vital signs: Temp Pulse Resp BP Pulse Ox 98.2 F 78 20 122/70 99 09/01/16 18:20 09/01/16 18:20 09/01/16 18:20 09/01/16 18:20 09/01/16 18:20 - Laboratory Result Diagrams: 09/01/16 15:03 09/01/16 15:03 Laboratory results interpreted by me: 09/01/16 09/01/16 09/01/16 15:03 15:03 15:03 RDW 16.2 H Alkaline Phosphatase 137 H Creatine Kinase 151 H - Diagnostic Test Radiology reviewed: Reports reviewed - CTA: no acute abnormality - EKG Interpretation by Me Additional EKG results interpreted by me: 09/01/16 18:33 EKG at 1733 demonstrates NSR at a rate of 76. Nonspecific T changes. No ST segment elevation or depression. Discharge - Discharge Clinical Impression: Bronchospasm Dyspnea Qualifiers: Dyspnea type: unspecified Qualified Code(s): R06.00 - Dyspnea, unspecified Condition: Stable Disposition: HOME, SELF-CARE Additional Instructions: Your blood work, EKG, and CT of your chest today are reassuring and do not demonstrate any acute abnormality. Rest, drink plenty of fluids, and follow up with your OB and PCP as scheduled. Return to the ER for fever, increased breathing trouble, chest pain, or any worsening symptoms or concerns. Prescriptions: Albuterol Sulfate [Proair HFA Inhalation Aerosol 8.5 gm MDI] 2 puff IH Q4H PRN # 1 mdi PRN Reason: Referrals: ZHANG STAPLETON MD [Primary Care Provider] - Follow up in 3-5 days
[2016-09-01 17:50] LABS: CREATINE KINASE MB 2.62 ng/mL (<4.55)
[2016-09-01 17:52] LABS: TROPONIN I < 0.012 ng/mL
[2016-09-01 18:21] VITALS: BP 122/70
--- NOTE | 2016-09-04 09:42 | EKG REPORT ---
SEVERITY:- BORDERLINE ECG - SINUS RHYTHM INFERIOR Q WAVES, PROBABLY NORMAL VARIATION : Confirmed by: Tenzin Ford 04-Sep-2016 09:42:09
== END 2016-09-01 18:45 | disposition home or self-care (01) ==
LOC: ER 14:13
DX: J98.01 Acute bronchospasm (principal); R06.00 Dyspnea, unspecified; R06.02 Shortness of breath
CPT/HCPCS: 36415; 71275; 80053; 82550; 82553; 84484; 85025; 93005; 93010; 94640; 99285

== ENCOUNTER 2017-05-25 14:22 | Emergency (ER) | payer OTHER, BC ==
[2017-05-25] MEDS ORDERED: IBUPROFEN 800 MG TABLET PO ONE (15:41)
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
[2017-05-25 19:13] VITALS: BP 125/73
== END 2017-05-25 18:25 | disposition home or self-care (01) ==
LOC: ER 14:22
DX: S39.012A Strain of muscle, fascia and tendon of lower back, initial encounter (principal); S73.101A Unspecified sprain of right hip, initial encounter; M54.2 Cervicalgia; V89.2XXA Person injured in unspecified motor-vehicle accident, traffic, initial encounter
CPT/HCPCS: 72050; 72070; 72110; 81025; 99284

== ENCOUNTER 2018-01-23 13:07 | Emergency (ER) | payer BC, OTHER ==
--- NOTE | 2018-01-23 13:57 | RADIOLOGY REPORT (SQ) ---
EXAM DESCRIPTION: FOOT LEFT COMPLETE COMPLETED DATE/TIME: 01/23/2018 1:49 pm REASON FOR STUDY: fall COMPARISON: None. NUMBER OF VIEWS: Three views. TECHNIQUE: AP, lateral and oblique radiographic images acquired of the left foot. LIMITATIONS: None. FINDINGS: MINERALIZATION: Normal. BONES: Transverse mildly displaced fracture at the base of the 5th metatarsal. JOINTS: No effusions. SOFT TISSUES: Lateral soft tissue swelling. No foreign body. OTHER: No other significant finding. IMPRESSION: MILDLY DISPLACED FRACTURE AT THE BASE OF THE 5TH METATARSAL. TECHNICAL DOCUMENTATION: JOB ID: [id number] [email or web address]- All Rights Reserved Reading location - IP/workstation name: [email or web address]
[2018-01-23] MEDS ORDERED: IBUPROFEN 800 MG TABLET PO ONE (14:24)
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
[2018-01-23 14:48] VITALS: BP 129/77
== END 2018-01-23 14:48 | disposition home or self-care (01) ==
LOC: ER 13:07
DX: S92.352A Displaced fracture of fifth metatarsal bone, left foot, initial encounter for closed fracture (principal); W10.9XXA Fall (on) (from) unspecified stairs and steps, initial encounter
CPT/HCPCS: 99283

== ENCOUNTER 2018-02-14 15:38 | Emergency (ER) | payer BC ==
[2018-02-14] MEDS ORDERED: NAPROXEN 250 MG TABLET PO ONE (16:09)
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
--- NOTE | 2018-02-14 19:08 | RADIOLOGY REPORT (SQ) ---
EXAM DESCRIPTION: VENOUS UNILATERAL LOWER COMPLETED DATE/TIME: 02/14/2018 6:56 pm REASON FOR STUDY: Rule out DVT in left leg COMPARISON: None. TECHNIQUE: Dynamic and static kruse scale and color images acquired of the left leg venous system. Se lected spectral images acquired with additional compression and augmentation maneuvers. The contralat eral common femoral vein and saphenofemoral junction were also imaged. Images stored on PACS. LIMITATIONS: None. FINDINGS: COMMON FEMORAL: Normal phasicity, compression and augmentation. No visualized echogenic ma terial on kruse scale. No defects on color images. FEMORAL: Normal compression and augmentation. No visualized echogenic material on kruse scale. No defe cts on color images. POPLITEAL: Normal compression, augmentation. No visualized echogenic material on kruse scale. No defec ts on color images. CALF VESSELS: Normal compression, augmentation. No visualized echogenic material on kruse scale. No de fects on color images. GSV and SSV: Normal compression, augmentation. No visualized echogenic material on kruse scale. No def ects on color images. ANY DEEP VENOUS INSUFFICIENCY: Not evaluated. ANY EVIDENCE OF POPLITEAL CYST: No. OTHER: No other significant finding. CONTRALATERAL COMMON FEMORAL VEIN AND SAPHENOFEMORAL JUNCTION: Normal phasicity, compression and augmentation. No visualized echogenic material on kruse scale. No de fects on color images. IMPRESSION: NO EVIDENCE DVT OR SVT IN THE LEFT LEG. TECHNICAL DOCUMENTATION: JOB ID: [id number] [employer]- All Rights Reserved Reading location - IP/workstation name: [email or web address]
[2018-02-14 19:10] VITALS: BP 120/63
== END 2018-02-14 19:10 | disposition home or self-care (01) ==
LOC: ER 15:38
DX: M62.838 Other muscle spasm (principal); M79.605 Pain in left leg
CPT/HCPCS: 93971; 99284

== ENCOUNTER 2019-03-05 12:07 | Emergency (ER) | payer BC, MEDICAID ==
--- NOTE | 2019-03-05 12:59 | ER Document Report ---
ED Medical Screen (RME) - General Chief Complaint: Palpitations Stated Complaint: PALPITATIONS, IRREGULAR HEARTBEAT Time Seen by Provider: 03/05/19 12:52 Primary Care Provider: CRIS PINTO MD [Primary Care Provider] - Follow up as needed Mode of Arrival: Ambulatory Information source: Patient Notes: 33-year-old female presented to ED for heart palpitations for the last 5 days. She states every night when she would lay down she would get heart palpitations and they would skip a beat and then beat real hard until she fell asleep. She states it was only at night for the first 5 4 days and then today is been done today also. She states at times the pain will take her breath away. She states she is 6 weeks with her second baby. She states she never had this with her first child and she is never had any heart problems in the past. She states she does not smoke drink or any drugs. She states she is very concerned about her baby due to these palpitations. She states her first visit is in March. I have greeted and performed a rapid initial assessment of this patient. A comprehensive ED assessment and evaluation of the patient, analysis of test results and completion of medical decision making process will be conducted by an additional ED providers. TRAVEL OUTSIDE OF THE [place] IN LAST 30 DAYS: No - Related Data Allergies/Adverse Reactions: No Known Allergies Allergy (Verified 02/14/18 15:40) Past Medical History Renal/ Medical History: Denies: Hx Peritoneal Dialysis Psychiatric Medical History: Reports: Hx Anxiety, Hx Depression Past Surgical History: Reports: Hx Adenoidectomy, Hx Gynecologic Surgery - Elective - Immunizations Hx Diphtheria, Pertussis, Tetanus Vaccination: Yes Physical Exam - Vital signs Vitals: Temp Pulse BP Pulse Ox 98.7 F 73 129/73 H 100 03/05/19 12:52 03/05/19 12:52 03/05/19 12:52 03/05/19 12:52 Course - Vital Signs Vital signs: Temp Pulse Resp BP Pulse Ox 98.7 F 73 129/73 H 100 03/05/19 12:52 03/05/19 12:52 03/05/19 12:52 03/05/19 12:52 Doctor's Discharge - Discharge Referrals: CRIS PINTO MD [Primary Care Provider] - Follow up as needed
[2019-03-05 13:55] LABS: AMORPHOUS SEDIMENT,URINE TRACE /HPF; APPEARANCE,URINE CLOUDY; BILIRUBIN,URINE NEGATIVE (NEGATIVE); COLOR,URINE YELLOW; GLUCOSE, URINE NEGATIVE (NEGATIVE); KETONES,URINE NEGATIVE (NEGATIVE); PROTEIN,URINE NEGATIVE (NEGATIVE); UROBILINOGEN,URINE NEGATIVE mg/dL (<2.0)
[2019-03-05 14:02] LABS: ABSOLUTE EOSINOPHILS # (AUTO) 0.1 10^3/uL (0.0-0.6); ABSOLUTE LYMPHOCYTES (AUTO) 1.7 10^3/uL (0.5-4.7); ABSOLUTE MONOCYTES (AUTO) 0.5 10^3/uL (0.1-1.4); BASOPHILS % (AUTO) 0.3 % (0-2); EOSINOPHILS % (AUTO) 1.9 % (0-6); HEMATOCRIT 42.8 % (36.0-47.0); HEMOGLOBIN 14.7 g/dL (12.0-15.5); LYMPHOCYTES % (AUTO) 26.6 % (13-45); MEAN CORPUSCULAR HEMOGLOBIN 31.2 pg (27.0-33.4); MEAN CORPUSCULAR HGB CONC 34.4 g/dL (32.0-36.0); MEAN CORPUSCULAR VOLUME 91 fl (80-97); MONOCYTES % (AUTO) 7.5 % (3-13); PLATELET COUNT 280 10^3/uL (150-450); RED BLOOD COUNT 4.72 10^6/uL (3.72-5.28); RED CELL DISTRIBUTION WIDTH 13.3 % (11.5-14.0); SEGMENTED NEUTROPHILS % (AUTO) 63.7 % (42-78); TOTAL CELLS COUNTED % (AUTO) 100 %; WHITE BLOOD COUNT 6.4 10^3/uL (4.0-10.5)
[2019-03-05 14:12] LABS: ALBUMIN 4.9 g/dL (3.5-5.0); ALKALINE PHOSPHATASE 72 U/L (38-126); ANION GAP 13 (5-19); ASPARTATE AMINO TRANSFERASE 30 U/L (14-36); BILIRUBIN,DIRECT 0.1 mg/dL (0.0-0.4); BILIRUBIN,TOTAL 0.8 mg/dL (0.2-1.3); BLOOD UREA NITROGEN 8 mg/dL (7-20); CARBON DIOXIDE 27 mmol/L (22-30); CHLORIDE 99 mmol/L (98-107); GLUCOSE 76 mg/dL (75-110); POTASSIUM 3.9 mmol/L (3.6-5.0); TOTAL PROTEIN 8.2 g/dL (6.3-8.2)
--- NOTE | 2019-03-05 14:12 | RADIOLOGY REPORT (SQ) ---
EXAM DESCRIPTION: U/S OB TRANSVAGINAL W/O DOP COMPLETED DATE/TIME: 03/05/2019 1:58 pm REASON FOR STUDY: Palpitations 6 weeks COMPARISON: None. TECHNIQUE: Transvaginal static and realtime grayscale images acquired of the pelvis. Additional gilmer cted spectral and color Doppler images recorded. All images stored on PACs. bHCG: Pending. CLINICAL DATES: 5 weeks 5 days LIMITATIONS: None. FINDINGS: FETUS: Single Living intrauterine . ULTRASOUND EGA: 6 weeks 1 day ULTRASOUND ART: 10/28/2019 EFW: Not applicable less than 20 weeks. CRL: 4 mm FHR: 96 beats per minute. SURVEY: No visualized anomalies. AMNIOTIC FLUID: Adequate amount. PLACENTA: Not yet developed due to early gestation. SUBCHORIONIC BLEED: Yes. SIZE OF BLEED: Maximum diameter 1.4 cm. UTERUS: No masses. No anomalies. CERVICAL LENGTH: 2.4 cm. Closed. RIGHT ADNEXA: Normal ovary with normal vascular flow. No adnexal free fluid. No adnexal masses. LEFT ADNEXA: Normal ovary with normal vascular flow. No adnexal free fluid. No adnexal masses. FREE FLUID: Trace amount. OTHER: No other significant finding. IMPRESSION: LIVING INTRAUTERINE . EGA 6 weeks 1 day. Small subchronic hemorrhage. Trimester of : First trimester - 0 to 13 weeks. TECHNICAL DOCUMENTATION: JOB ID: [id number] [employer]- All Rights Reserved rev-08/10 Reading location - IP/workstation name: [email or web address]
--- NOTE | 2019-03-05 14:17 | RADIOLOGY REPORT (SQ) ---
EXAM DESCRIPTION: CHEST 2 VIEWS COMPLETED DATE/TIME: 03/05/2019 2:03 pm REASON FOR STUDY: Palpitations 6 weeks COMPARISON: TWO-VIEW CHEST 04/17/2016 EXAM PARAMETERS: NUMBER OF VIEWS: two views TECHNIQUE: Digital Frontal and Lateral radiographic views of the chest acquired. RADIATION DOSE: Patient is and her pelvis was double shielded with lead apron during the ex posure LIMITATIONS: none FINDINGS: LUNGS AND PLEURA: No opacities, masses or pneumothorax. No pleural effusion. MEDIASTINUM AND HILAR STRUCTURES: No masses or contour abnormalities. HEART AND VASCULAR STRUCTURES: Heart normal size. No evidence for failure. BONES: No acute findings. HARDWARE: None in the chest. OTHER: No other significant finding. IMPRESSION: NO ACUTE RADIOGRAPHIC FINDING IN THE CHEST. TECHNICAL DOCUMENTATION: JOB ID: [id number] [employer]- All Rights Reserved Reading location - IP/workstation name: [email or web address]
--- NOTE | 2019-03-05 16:05 | ER Document Report ---
ED Cardiac - General Chief Complaint: Palpitations Stated Complaint: PALPITATIONS, IRREGULAR HEARTBEAT Time Seen by Provider: 03/05/19 12:52 Primary Care Provider: CRIS PINTO MD [NO LOCAL MD] - Follow up as needed Mode of Arrival: Ambulatory Information source: Patient TRAVEL OUTSIDE OF THE [place] IN LAST 30 DAYS: No - HPI Patient complains to provider of: Palpitations, Other - Denies any use of [id number] medications decongestants or any thyroid disease. Use of: Other Is the pain a: New problem - A few days ago intermittent. Patient noted that most last evening. Eyes any chest pain. Denies any abdominal pain nausea vomiting or diarrhea. Patient is 6 weeks and thus far the is going well patient is 3 para 1 AB 1 Severity now: None Severity at worst: Mild Pain level currently: 0 Cardiac risk factors: None Positive cardiac history: No Associated symptoms: None Exacerbated by: Other - No symptoms that causes exacerbation and no symptoms of anything that causes any relief. Episodes are short-lived without signs of chest pain or shortness of breath. Similar symptoms previously: No - Related Data Allergies/Adverse Reactions: No Known Allergies Allergy (Verified 02/14/18 15:40) Past Medical History - General Information source: Patient - Social History Smoking Status: Never Smoker Family History: Reviewed & Not Pertinent Patient has suicidal ideation: No Patient has homicidal ideation: No Renal/ Medical History: Denies: Hx Peritoneal Dialysis Psychiatric Medical History: Reports: Hx Anxiety, Hx Depression Past Surgical History: Reports: Hx Adenoidectomy, Hx Gynecologic Surgery - Elective - Immunizations Hx Diphtheria, Pertussis, Tetanus Vaccination: Yes Review of Systems - Review of Systems Constitutional: See HPI Cardiovascular: See HPI Respiratory: No symptoms reported Gastrointestinal: No symptoms reported Female Genitourinary: No symptoms reported Musculoskeletal: No symptoms reported Skin: No symptoms reported Hematologic/Lymphatic: No symptoms reported Neurological/Psychological: No symptoms reported - See HPI patient is 6 weeks without any signs or symptoms of gestational problems. Physical Exam - Vital signs Vitals: Temp Pulse BP Pulse Ox 98.7 F 73 129/73 H 100 03/05/19 12:52 03/05/19 12:52 03/05/19 12:52 03/05/19 12:52 Interpretation: Normal - General General appearance: Appears well, Alert - HEENT Head: Normocephalic, Atraumatic Eyes: Normal Pupils: PERRL - Respiratory Respiratory status: No respiratory distress Chest status: Nontender Breath sounds: Normal Chest palpation: Normal - Cardiovascular Rhythm: Regular Heart sounds: Normal auscultation Murmur: No - Abdominal Inspection: Normal Distension: No distension Bowel sounds: Normal Tenderness: Nontender Organomegaly: No organomegaly - Back Back: Normal, Nontender - Extremities General upper extremity: Normal inspection, Nontender, Normal color, Normal ROM, Normal temperature General lower extremity: Normal inspection, Nontender, Normal color, Normal ROM, Normal temperature, Normal weight bearing. No: Kasandra's sign - Neurological Neuro grossly intact: Yes Cognition: Normal Orientation: AAOx4 [place] Coma Scale Eye Opening: Spontaneous Lisandro Coma Scale Verbal: Oriented [place] Coma Scale Motor: Obeys Commands [place] Coma Scale Total: 15 Speech: Normal Motor strength normal: LUE, RUE, LLE, RLE Sensory: Normal - Psychological Associated symptoms: Normal affect, Normal mood - Skin Skin Temperature: Warm Skin Moisture: Dry Skin Color: Normal Course - Re-evaluation Re-evalutation: 03/05/19 16:14 Patient is resting comfortably with normal vital signs and no signs of tachycardia or irregular rhythms. Discussed with patient the results of her laboratories chest x-ray urinalysis and ultrasound of her . Patient is 6 weeks 2 days with a heart rate heart rate of 96 and a small subchorionic hemorrhage. Patient has no abdominal pain or pelvic pain is not showing any discharge or break in her water. Patient's chest x-ray is clear. EKG does not show any acute changes. Normal sinus rhythm. Patient's urinalysis shows 3+ bacteria. Patient has minimal symptoms of urinary tract infection however opted to place patient on Macrobid twice a day for 1 week and to follow- up with her OB personal service workers. Patient is also advised to follow-up with her primary care physician. - Vital Signs Vital signs: Temp Pulse Resp BP Pulse Ox 98.7 F 73 129/73 H 100 03/05/19 12:52 03/05/19 12:52 03/05/19 12:52 03/05/19 12:52 - Laboratory Result Diagrams: 03/05/19 13:25 03/05/19 13:25 Laboratory results interpreted by me: 03/05/19 03/05/19 13:25 13:25 Beta HCG, Quant 75802.00 H Leukocyte Esterase Rfl LARGE H - Diagnostic Test Radiology reviewed: Image reviewed, Reports reviewed - EKG Interpretation by Me EKG shows normal: Sinus rhythm Rate: Normal Rhythm: NSR When compared to previous EKG there are: Other Additional EKG results interpreted by me: 03/05/19 16:11 Minimal small inferior Q waves probably normal variation. Discharge - Discharge Clinical Impression: History of tachycardia, Threatened in first trimester, Subchorionic hemorrhage in first trimester UTI (urinary tract infection) Qualifiers: Urinary tract infection type: acute cystitis Hematuria presence: without hematuria Qualified Code(s): N30.00 - Acute cystitis without hematuria Disposition: HOME, SELF-CARE Instructions: Threatened Miscarriage ([facility]), Urinary Tract Infection ([facility]) Additional Instructions: Patient instructed to follow-up with her primary care physician and also her OB personal service workers in a few days. Prescriptions: Nitrofurantoin/Nitrofuran Mac [Macrobid 100 mg Capsule] 1 tab PO BID 7 Days #14 capsule Referrals: CRIS PINTO MD [NO LOCAL MD] - Follow up as needed
[2019-03-05 17:14] VITALS: BP 129/68
--- NOTE | 2019-03-05 17:44 | EKG REPORT ---
SEVERITY:- BORDERLINE ECG - SINUS RHYTHM INFERIOR Q WAVES, PROBABLY NORMAL VARIATION : Confirmed by: Xavier Mason MD 05-Mar-2019 17:43:51
== END 2019-03-05 17:16 | disposition home or self-care (01) ==
LOC: ER 12:07
DX: O20.0 Threatened abortion (principal); O23.11 Infections of bladder in pregnancy, first trimester; R00.2 Palpitations; Z3A.01 Less than 8 weeks gestation of pregnancy
CPT/HCPCS: 36415; 71046; 76817; 80053; 81001; 83690; 84484; 84702; 85025; 93005; 93010; 99285